=== PATIENT | male | born 1950 | race Caucasian/White ===

== ENCOUNTER → 2017-12-13 | Outpatient (CLI) | payer MEDICARE ==
[~2017-12-13] MED LIST: ALLOPURINOL300 MG PO; BUMETANIDE1 MG PO; CEFTIN250 MG PO; COATED ASPIRIN325 MG PO; COUMADIN5 MG PO; DIGITEK125 MC1 PO; FLOMAX0.4 MG PO; GLUCOPHAGE XL500 MG PO; IRON325 M1; LEVOTHYROXINE50 MCG PO; LIPITOR PO; LOVENOX100 MG/1 M; PROTONIX40 M1 PO; WARFARIN SODIUM5 MG PO; Z ANDROGEL; Z.0.ALDACTONE25 MG; Z.0.AMARYL2 MG PO; Z.0.AMIODARONE HCL20 PO; Z.0.COREG3.125 MG PO; Z.0.LISINOPRIL2.5 MG PO; Z.0.TORSEMIDE20 MG
--- NOTE | 2017-12-13 17:15 | Diagnostic Imaging Report ---
PROCEDURE:C-SPINE COMPLETE COMPARISON:None. INDICATIONS:NECK PAIN FINDINGS: The lateral view is visualized from the skull base to C7. Minimal anterolisthesis of C3 on C4 and C4 on C5. There are no fractures, lytic or blastic lesions. Mild disc space narrowing at C4-C5, C5-C6, and C6-C7 with associated mild foraminal narrowing. The C1/C2-odontoid interval is normal. The pre-vertebral soft tissues are normal. CONCLUSION: Minimal anterolisthesis of C3 on C4 and C4 on C5. Mild degenerative changes from C4-C7. Dictated by: Robson Arrington M.D. on 12/13/2017 at 17:17 Electronically approved by: Robson Arrington M.D. on 12/13/2017 at 17:17
== END ==
LOC: RAD 15:58
PROVIDERS: ATTEND Internal Medicine
DX: M54.2 Cervicalgia (principal)
CPT/HCPCS: 72050

== ENCOUNTER 2018-08-26 14:46 | Inpatient (IN) | payer MEDICARE, OTHER ==
[~2018-08-26] VITALS: Ht 167.6 cm; Wt 78.6 kg
--- OUTSIDE RECORDS SUMMARY | 2018-08-26 14:49 | XMS REPORT ---
Author [facility] Address Unknown Phone Unavailable Care Team Providers Care [employer] Dean Name Role Phone AMOS BHANDARI Unavailable Unavailable Leidy MANJARREZ Unavailable Unavailable Problems This patient has no known problems. Allergies, Adverse Reactions, Alerts This patient has no known allergies or adverse reactions. Medications This patient has no known medications. Results Test Description Test Time Test Comments Text Results Atomic Results Result Comments CERVICAL SPINE 4 OR 5 VIEWS [place] [address] Patient Name: BUBBA JAIN MR #: [id number] : 1950 Age/Sex: 67/M Req #: [id number] [facility], [place] Physician: Ordered by: AMOS BHANDARI MD Report #: [id number] Location: RAD Room/Bed: Procedure: [id number] DX/CERVICAL SPINE 4 OR 5 VIEWS Exam Date: Exam Time: REPORT STATUS: Signed PROCEDURE: C-SPINE COMPLETE COMPARISON: None. INDICATIONS: NECK PAIN FINDINGS: The lateral view is visualized from the skull base to C7. Minimal anterolisthesis of C3 on C4 and C4 on C5. There are no fractures, lytic or blastic lesions. Mild disc space narrowing at C4-C5, C5- C6, and C6-C7 with associated mild foraminal narrowing. The C1/C2-odontoid interval is normal. The pre-vertebral soft tissues are normal. CONCLUSION: Minimal anterolisthesis of C3 on C4 and C4 on C5. Mild degenerative changes from C4-C7. Dictated by: Robson Forrest M.D. on 12/13/2017 at 17:17 Electronically approved by: Robson Forrest M.D. on 12/13/2017 at 17:17 Dictated By: ROBSON FORREST MD 16 Transcribed By: JAY JAY on 12/13/171716 COPY TO: AMOS BHANDARI MD CHEST SINGLE (PORTABLE) [place] [address] Patient Name: BUBBA JAIN MR #: [id number] : 1950 Age/Sex: 66/M Req #: [id number] Adm Physician: Ordered by: JOSHUA MANJARREZ MD Report #: [id number] Location: ER Room/Bed: Procedure: [id number] DX/CHEST SINGLE (PORTABLE) Exam Date: 07/16/17 Exam Time: 1230 REPORT STATUS: Signed PROCEDURE: A single AP view of the chest. COMPARISON: [facility], DX, CHEST SINGLE (PORTABLE), 06/05/2016, 22:09. INDICATIONS: SHORTNESS OF BREATH, HISTORY OF 7 HEART ATTACKS, FINDINGS: Lines/tubes: Triple lead left chest wall cardiac device is again noted. Lungs: Mild pulmonary vascular congestion. Pleura: There is no pleural effusion or pneumothorax. Heart and mediastinum: The heart is enlarged. Bones: No acute bony abnormality. IMPRESSION: Cardiomegaly with mild pulmonary vascular congestion. Chintan Bertrand D.O. Dictated by: Chintan Bertrand D.O. on 07/16/2017 at 13:17 Electronically approved by: Chintan Bertrand D.O. on 07/16/2017 at 13:17 Dictated By: CHINTAN BERTRAND DO 131 Transcribed By: JAY JAY on 07/16/171316 COPY TO: JOSHUA MANJARREZ MD
[2018-08-26 15:30] LABS: BASOPHILS % 0.2 % (0.0-1.0); HEMATOCRIT 37.2 % (38.2-49.6); HEMOGLOBIN 12.1 g/dL (14.0-18.0); LYMPHOCYTES # (AUTO) 1.1 (1.0-3.2); LYMPHOCYTES % 9.1 % (18.0-39.1); MEAN CORPUSCULAR HEMOGLOBIN 29.2 pg (28-32); MEAN CORPUSCULAR HGB CONC 32.5 g/dL (31-35); MEAN CORPUSCULAR VOLUME 89.9 fL (81-99); MONOCYTES # (AUTO) 0.8 (0.2-0.8); MONOCYTES % 6.4 % (4.4-11.3); NEUTROPHILS # (AUTO) 9.8 (2.1-6.9); NEUTROPHILS % 82.4 % (38.7-80.0); PLATELET COUNT 308 x10e3/uL (140-360); RED BLOOD COUNT 4.14 x10e6/uL (4.3-5.7)
[2018-08-26 15:48] LABS: INR 2.45; PROTHROMBIN TIME 28.4 seconds (11.9-14.5)
[2018-08-26 15:49] LABS: PARTIAL THROMBOPLASTIN TIME 37.1 seconds (23.8-35.5)
[2018-08-26 15:54] LABS: CLARITY,URINE CLEAR (CLEAR); COLOR,URINE YELLOW (YELLOW); LEUKOCYTE ESTERASE ,URINE NEGATIVE (NEGATIVE); NITRITE,URINE NEGATIVE (NEGATIVE); PROTEIN,URINE DIPSTICK NEGATIVE (NEGATIVE)
[2018-08-26 15:55] LABS: BILIRUBIN,URINE NEGATIVE (NEGATIVE); KETONES,URINE NEGATIVE (NEGATIVE); URINE UROBILINOGEN 0.2 mg/dL (0.2 - 1)
[2018-08-26 16:02] LABS: BACTERIA,URINE RARE /HPF; EPITHELIAL CELLS,URINE RARE /LPF; RBC,URINE 0-5 /HPF (0-5); WBC,URINE (MAN) 0-5 /HPF (0-5)
[2018-08-26 16:03] LABS: CREATINE KINASE MB 3.4 ng/mL (0-5.0)
[2018-08-26 16:04] LABS: ALBUMIN 3.8 g/dL (3.5-5.0); ANION GAP 22.5 mmol/L (8-16); CALCIUM 10.5 mg/dL (8.4-10.2); CREATININE, SERUM 4.13 mg/dL (0.72-1.25); POTASSIUM 3.5 mmol/L (3.5-5.1)
--- NOTE | 2018-08-26 16:25 | Diagnostic Imaging Report ---
EXAMINATION: CHEST SINGLE (NOT PORTABLE) COMPARISON: Chest radiograph 07/16/2017. FINDINGS: TUBES and LINES: Left-sided AICD device with leads overlying the right sinus and right ventricle. LUNGS: Moderate inflation of the lungs. Mild patchy bibasilar opacities. No evidence of lobar consolidation or pulmonary edema. PLEURA: No pleural effusion or pneumothorax. HEART AND MEDIASTINUM: The cardiomediastinal silhouette is unchanged with mild cardiomegaly. Status post CABG. BONES AND SOFT TISSUES: Status post median sternotomy. No acute bony abnormality. UPPER ABDOMEN: No free air under the diaphragm. IMPRESSION: Left-sided AICD in unchanged position. No evidence of pulmonary edema. Signed by: Dr. Marques Monroe MD on 08/26/2018 4:21 PM
[2018-08-26] MEDS ORDERED: ASPIRIN 81 MG CHEW TAB PO ONE (21:00)
[2018-08-26] MEDS ORDERED: DEXTROSE 50% SYRINGE 50 ML IV PRN (21:00)
[2018-08-26] MEDS ORDERED: SODIUM CHLORIDE FLUSH 10 ML SYR INJ PRN (21:00)
[2018-08-26] MEDS ORDERED: ONDANSETRON HCL INJ 2 MG/ML VIAL IV PRN (21:00)
[2018-08-26] MEDS: INSULIN REGULAR, HUMAN 100 UNIT/1 ML 3ML VIAL SQ SCH (22:09)
[2018-08-27 00:58] LABS: CREATINE KINASE MB 2.4 ng/mL (0-5.0)
[2018-08-27] MEDS: ACETAMINOPHEN/CODEINE 300MG - 30MG TAB PO PRN ×2 (05:17→17:04)
--- NOTE | 2018-08-27 05:17 | NUR ---
PT REQUEST PAIN MEDICATION FOR BACK/SHOULDER PAIN. RATING 6/10. MEDICATED PER ORDER
[2018-08-27 06:17] LABS: BASOPHILS % 0.2 % (0.0-1.0); HEMOGLOBIN 11.7 g/dL (14.0-18.0); LYMPHOCYTES # (AUTO) 0.8 (1.0-3.2); MEAN CORPUSCULAR HEMOGLOBIN 29.6 pg (28-32); MEAN CORPUSCULAR HGB CONC 32.5 g/dL (31-35); MEAN CORPUSCULAR VOLUME 91.1 fL (81-99); MONOCYTES # (AUTO) 0.8 (0.2-0.8); MONOCYTES % 8.5 % (4.4-11.3); NEUTROPHILS # (AUTO) 7.2 (2.1-6.9); NEUTROPHILS % 80.2 % (38.7-80.0); PLATELET COUNT 267 x10e3/uL (140-360); RED BLOOD COUNT 3.95 x10e6/uL (4.3-5.7); RED CELL DISTRIBUTION WIDTH 16.3 % (11.7-14.4)
[2018-08-27] MEDS ORDERED: SODIUM CHLORIDE 0.9% 1000ML 1,000 ML IV ONE (06:30)
[2018-08-27 06:32] LABS: INR 2.04; PROTHROMBIN TIME 24.6 seconds (11.9-14.5)
[2018-08-27 06:53] LABS: ALBUMIN 3.4 g/dL (3.5-5.0); ANION GAP 22.3 mmol/L (8-16); CALCIUM 9.9 mg/dL (8.4-10.2); CREATININE, SERUM 3.72 mg/dL (0.72-1.25); POTASSIUM 3.3 mmol/L (3.5-5.1)
--- NOTE | 2018-08-27 07:00 | NUR ---
REPORT TO NAEEM SNYDER
--- NOTE | 2018-08-27 07:18 | History and Physical ---
REASON FOR ADMISSION: Iaiob-kx-mqrqytw kidney failure. HISTORY OF PRESENT ILLNESS: The patient is a gentleman with multiple comorbidities with chronic systolic heart failure, chronic AFib, chronic kidney disease stage 3, diabetes, and hypertension who presented being seen by his sales officer who felt like the patient appeared very ill, so sent him to the emergency room where he was noticed to have worsening of his rchmc-vy-dwsjwkd kidney disease, so he has been admitted for further evaluation but according to the patient he had a recent hospitalization at an outside hospital in [place] for CHF overload. I believe, the patient has just been over-diuresed because he was having significant amount of weight loss recently due to the diuretic use. Currently, he states he is not having any shortness of breath or chest pains. PAST MEDICAL HISTORY: Coronary artery disease; pacemaker; chronic AFib; chronic kidney disease, stage 3, sometimes 4; chronic systolic heart failure; diabetes; and hypothyroidism. MEDICATIONS: See OCT. ALLERGIES: PENICILLIN. SOCIAL HISTORY: Nonsmoker and nondrinker. Retired teacher. FAMILY HISTORY: Noncontributory. PHYSICAL EXAMINATION VITAL SIGNS: Temperature 98.6, blood pressure 130/70, pulse 78, and sats 98%. GENERAL: He is in no apparent distress, lying in bed. NECK: Supple. No lymphadenopathy. No JVD. CARDIOVASCULAR: Regular rate and rhythm due to being paced. LUNGS: Clear to auscultation bilaterally. ABDOMEN: Good bowel sounds. Soft and nontender. EXTREMITIES: No clubbing or cyanosis. NEUROLOGIC: Nonfocal. ASSESSMENT AND PLAN 1. Fqgyj-ng-dquvgwx kidney disease. The patient's baseline is usually in the upper 2 range with BUN of approximately 70, so the patient appears to be over-diuresed. We will give him some gentle hydration and monitor his lab values and we will also consult renal. 2. Chronic atrial fibrillation and coronary artery disease. Continue with current care per cardiology. 3. Diabetes. Continue with current care and monitoring. 4. Hypertension. Continue with current care and monitoring. 5. Chronic systolic heart failure. We will continue with his current medication regimen. Please see hospital chart for details. Job#: [id number] BRITTANIE
[2018-08-27] MEDS: INSULIN REGULAR, HUMAN 100 UNIT/1 ML 3ML VIAL SQ SCH ×4 (07:30→21:00)
[2018-08-27 09:00] LABS: CREATINE KINASE MB 2.1 ng/mL (0-5.0)
--- NOTE | 2018-08-27 12:10 | NUR ---
DR THEO CORNEJO COVERING FOR DR. DOUGHERTY AT BEDSIDE FOR H&P
--- NOTE | 2018-08-27 12:22 | Consultation ---
DATE OF CONSULTATION: August 27, 2018 REQUESTING PHYSICIAN: Dr. Butt. REASON FOR CONSULTATION: Acute kidney injury. Thank you for allowing us to participate in Mr. Man's care. This is a 67-year-old male with history of chronic kidney disease stage 3, mainly nephrosclerosis, usually runs creatinine around 2. He also has diabetic end-organ damage. Has recently been diuresing himself because of worsening heart failure type symptoms. He also had a recent hospitalization. He thinks he has lost quite a bit of weight while he was doing this, felt to be ill when seen by cardiology, so he was then sent to the ER. During evaluation found that while his urine was entirely bland negative for protein or blood on the dipstick with no casts, his creatinine was markedly elevated at 4.1. Chest x-ray was clear. K was 3.3. Hemoglobin was satisfactory at 11.7. His baseline creatinine as noted before runs around 2 to 2.4 about a year ago. PAST MEDICAL HISTORY: CKD stage 3, nephrosclerosis, type 2 diabetes, end-organ damage, history of CHF, AICD placement, history of fluid overload, multiple cysts on ultrasound although not clear that he met criteria for polycystic kidney disease. MEDICATIONS: Lasix has been stopped here. He has been on some IV fluids, allopurinol 300 a day, amiodarone 200 daily, aspirin 321 mg daily, digoxin 0.125 mg p.o. daily, Amaryl 2 mg daily, levothyroxine 50 mcg a day, metformin 500 b.i.d. which has been stopped, lisinopril 2.5 a day which has been stopped, warfarin. FAMILY HISTORY: No kidney problems. REVIEW OF SYSTEMS CONSTITUTIONAL: Was feeling poorly/weak, better now. RESPIRATORY: Denying dyspnea, cough, hemoptysis. CARDIAC: No angina or syncope. NEURO: Denying headache, seizures. His strength is returning. GI: Denying nausea, vomiting, diarrhea. Rest of review is negative. PHYSICAL EXAMINATION: GENERAL: Lying in bed. No distress. VITAL SIGNS: Temperature 98.4, pulse 82, blood pressure 109/80. HEENT: Grossly atraumatic. NECK: Neck veins are flat. CHEST: Clear. Bilateral breath sounds are equal. CARDIAC: Normal heart tone. Rhythm sounds regular at this time. Question S3. EXTREMITIES: No edema. SKIN: Dry. ABDOMEN: Benign. Liver not palpable. NEURO: Appears to be alert and appropriate. Speech is normal. Chest x-ray clear. UA is bland. K is 3.3. Serum CO2 of 23, creatinine 3.72 which is already improved, BUN down to 146 from 152 within a matter of a few hours. ASSESSMENT 1. Acute kidney injury, strongly suspect prerenal azotemia from the diuresis. Fluid overload is not an issue right now. 2. Mild hypokalemia. 3. History of chronic kidney disease stage 3 to 4. Baseline creatinine 2 to 2.4 mg%. PLAN: From a renal standpoint, I agree with limited IV fluids. Get renal ultrasound. Recheck chemistries. Will follow along. Job#: [id number]
[2018-08-27 13:31] VITALS: BP 132/79
[2018-08-27 13:52] VITALS: BP 132/79
--- NOTE | 2018-08-27 14:48 | Consultation ---
DATE OF CONSULTATION: REASON FOR CONSULTATION: Heart failure. HISTORY OF PRESENT ILLNESS: This is a 67-year-old man with a history of coronary artery disease status post coronary artery bypass graft surgery, chronic atrial fibrillation on anticoagulation, ischemic cardiomyopathy with chronic systolic congestive heart failure status post biventricular implantable cardioverter defibrillator, hypertension, hyperlipidemia, chronic kidney disease, diabetes mellitus, and hypothyroidism who presented to the emergency department via his outpatient appointment due to an ill appearance and volume overload. Evidently, the patient had been previously admitted to hospital in the [place] for what sounds like multiorgan failure. The patient had previously taken bumetanide 2 mg nightly; however, prior to admission in the [facility], the patient took 320 mg of Lasix. The patient reports that he received intravenous fluid hydration and left that hospital and presented to the outpatient clinic. He currently denies any chest pain or shortness of breath. Upon arrival here, the patient was noted to have a chest x-ray, which showed no evidence of pulmonary edema and his labs indicated kidney and liver dysfunction. PAST MEDICAL HISTORY: As stated above in the HPI. PAST SURGICAL HISTORY: As stated above in the HPI. PAST FAMILY HISTORY: No premature coronary artery disease or sudden cardiac . SOCIAL HISTORY: No illicit drug use, alcohol use, or tobacco use. ALLERGIES: PENICILLIN. MEDICATIONS: See medication reconciliation form. REVIEW OF SYSTEMS: A 12-point review of systems was conducted, is negative otherwise as above in the HPI. PHYSICAL EXAMINATION VITAL SIGNS: Temperature is 98.8, heart rate is 80, respirations are 18, blood pressure is 107/93, oxygen saturation 99% on room air. GENERAL: A well-appearing, elderly man, lying comfortably in bed, in no apparent distress. CARDIOVASCULAR: He is irregularly irregular with ectopy. LUNGS: Clear to auscultation. ABDOMEN: Soft, nontender. EXTREMITIES: No edema. VASCULAR: Diminished pulses. SKIN: Warm, dry, and intact. NEUROLOGIC: No focal deficits noted. Cranial nerves are grossly intact. LABORATORY DATA: All laboratory data reviewed. Creatinine 3.7, potassium 3.3, ALT 266, AST 64, bilirubin is 1.5. IMPRESSION 1. Chronic systolic congestive heart failure. 2. Ycwxy-to-oalevwf kidney disease. 3. Chronic atrial fibrillation. 4. Coronary artery disease status post coronary artery bypass graft surgery. 5. Diabetes mellitus. 6. Hypertension. RECOMMENDATIONS: Patient does not appear overtly volume overloaded. Chest x-ray was within normal limits. BMP elevated likely due to acute renal failure. Agree with general hydration and continue monitor his laboratory values closely. We will ensure to not overload the patient. Continue holding diuretics. Resume home cardiovascular medications including amiodarone, aspirin, carvedilol, and warfarin. Reasonable to hold digoxin and lisinopril at this point in time. Job#: [id number] SURESH
[2018-08-27 16:39] VITALS: BP 108/74
--- NOTE | 2018-08-27 19:00 | NUR ---
REPORT TAKEN FROM MORNING RN.WALKING ROUNDS DONE.LYEING QUIETLY IN THE BED.
[2018-08-27 20:55] VITALS: BP 124/76
[2018-08-27 21:00] VITALS: BP 124/76
[2018-08-28] VITALS (8 sets, daily range): BP systolic 100–121; BP diastolic 64–83
--- NOTE | 2018-08-28 02:27 | NUR ---
NO RESP.DISTRESS.AMBULATES.VOIDED.
[2018-08-28 06:13] LABS: BASOPHILS % 0.2 % (0.0-1.0); EOSINOPHILS % 0.1 % (0.0-6.0); HEMATOCRIT 36.6 % (38.2-49.6); HEMOGLOBIN 11.7 g/dL (14.0-18.0); LYMPHOCYTES # (AUTO) 0.9 (1.0-3.2); LYMPHOCYTES % 8.2 % (18.0-39.1); MEAN CORPUSCULAR HEMOGLOBIN 29.7 pg (28-32); MEAN CORPUSCULAR VOLUME 92.9 fL (81-99); MONOCYTES % 8.8 % (4.4-11.3); NEUTROPHILS % 79.7 % (38.7-80.0); PLATELET COUNT 260 x10e3/uL (140-360); RED BLOOD COUNT 3.94 x10e6/uL (4.3-5.7); RED CELL DISTRIBUTION WIDTH 16.7 % (11.7-14.4)
[2018-08-28 06:31] LABS: INR 1.63; PROTHROMBIN TIME 20.7 seconds (11.9-14.5)
[2018-08-28 06:46] LABS: ANION GAP 19.7 mmol/L (8-16); CALCIUM 9.9 mg/dL (8.4-10.2); CREATININE, SERUM 3.04 mg/dL (0.72-1.25); PHOSPHORUS 3.3 MG/DL (2.3-4.7); POTASSIUM 3.7 mmol/L (3.5-5.1)
--- NOTE | 2018-08-28 07:00 | NUR ---
REPORT GIVEN TO THE ONCOMING RN.WALKING ROUNDS DONE.STABLE CONDITION.
[2018-08-28] MEDS: INSULIN REGULAR, HUMAN 100 UNIT/1 ML 3ML VIAL SQ SCH ×4 (07:30→21:10)
[2018-08-28] MEDS ORDERED: WARFARIN SOD 5 MG TAB PO SCH (07:30)
--- NOTE | 2018-08-28 07:30 | NUR ---
Rcvd patient in report this am. Patient is awake in chair at this time. No s/s of distress noted
[2018-08-28] MEDS: LEVOTHYROXINE SODIUM 50 MCG TAB PO SCH (08:25)
[2018-08-28] MEDS: GLIMEPIRIDE 2 MG TAB PO SCH (08:47)
[2018-08-28] MEDS: CARVEDILOL 3.125 MG TAB PO SCH ×2 (08:47→17:48)
[2018-08-28] MEDS ORDERED: PANTOPRAZOLE SODIUM 40 MG SUSPDR.PKT PO SCH (09:00)
[2018-08-28] MEDS ORDERED: ALLOPURINOL 300 MG TAB PO SCH (09:00)
[2018-08-28] MEDS ORDERED: AMIODARONE HCL 200 MG TAB PO SCH (09:00)
[2018-08-28] MEDS ORDERED: POTASSIUM CHLO10 ME1 PO (09:18)
[2018-08-28] MEDS ORDERED: PANTOPRAZOLE SO40 MG PO (09:18)
[2018-08-28] MEDS ORDERED: METOLAZONE5 MG PO (09:18)
[2018-08-28] MEDS ORDERED: VITAMIN D31000 UNI1 PO (09:29)
[2018-08-28] MEDS ORDERED: COUMADIN5 MG PO (09:29)
[2018-08-28 10:10] LABS: BAND NEUTROPHILS % (MANUAL) 2 %; LYMPHOCYTES % (MANUAL) 8 % (19-48); MONOCYTES % (MANUAL) 8 % (3.4-9.0); NEUTROPHILS % (MANUAL) 82 % (40-74)
[2018-08-28 10:11] LABS: PLATELET ESTIMATE ADEQUATE; PLATELET MORPHOLOGY COMMENT NORMAL; RBC MORPHOLOGY COMMENT NORMAL
[2018-08-28] MEDS: SODIUM CHLORIDE 0.9% 1000ML 1,000 ML IV SCH (11:53)
--- NOTE | 2018-08-28 12:18 | Progress Note ---
DATE: CARDIOLOGY PROGRESS NOTE SUBJECTIVE: Patient is feeling well. Denies any chest pain or shortness of breath. OBJECTIVE VITAL SIGNS: Reviewed. Temperature 96.2, heart rate is 86, respirations 18, blood pressure is 131/83, oxygen saturation is 96% on room air. GENERAL: Well-appearing, in no apparent distress. CARDIOVASCULAR: Regular rate and rhythm. LUNGS: Clear to auscultation. ABDOMEN: Soft and nontender. LABORATORY DATA: Reviewed. Creatinine improved 3.04, potassium 3.7. Cardiac enzymes within normal limits. IMPRESSION 1. Chronic systolic congestive heart failure. 2. Eqpjm-dd-xlxoqhy kidney disease. 3. Dehydration. 4. Chronic atrial fibrillation. 5. Coronary artery disease, status post coronary artery bypass graft surgery. 6. Hypertension. 7. Hyperlipidemia. 8. Diabetes mellitus. RECOMMENDATIONS: Patient appears well compensated from his cardiac standpoint. NYHA class 1 symptoms. Continue gentle intravenous hydration for his acute kidney injury. We will have to titrate current cardiovascular medications. Continue to hold nephrotoxic agents. Diuretics also on hold. Job#: [id number] BENEDICTO
--- NOTE | 2018-08-28 14:42 | NUR ---
Patient c/o shortness of breath at this time. O2 sats noted at 96%. Patient placed on O2 at 2L NC for comfort. Will reassess.
[2018-08-28] MEDS: WARFARIN SOD 5 MG TAB PO SCH (17:48)
[2018-08-28] MEDS: ACETAMINOPHEN/CODEINE 300MG - 30MG TAB PO PRN (17:52)
--- NOTE | 2018-08-28 18:39 | Progress Note ---
DATE: August 28, 2018 NEPHROLOGY PROGRESS NOTE SUBJECTIVE: Today, the patient is feeling better. He denied any shortness of breath. He has been voiding freely without any difficulty. He maintains a good appetite. Denied any shortness of breath or chest pain. PHYSICAL EXAMINATION GENERAL: Alert, oriented, adult male, in no acute distress. VITAL SIGNS: Blood pressure 121/83, heart rate 86 per minute. LUNGS: Scattered fine rales bilaterally. HEART: Normal heart sounds. No additional sounds. ABDOMEN: Soft, nontender. No organomegaly. EXTREMITIES: No cyanosis, clubbing or edema. LABORATORY FINDINGS: Noted and reviewed. ASSESSMENT AND PLAN 1. Acute kidney injury, on chronic kidney disease, stage IV, multifactorial secondary to overdosing of diuretics by the patient himself (he has switched from his bumetanide to a very high dose of furosemide). There is a progressive improvement in his BUN and creatinine. At this point in time, he remains on low volume of intravenous fluids. 2. Volume status, compensated. 3. Monovalent electrolytes, in range. 4. Divalent electrolytes, in range. 5. Cardiac, further management per cardiology. 6. Disposition. I have discussed my evaluation, assessment, and plan of care with the patient and all details. All his questions were answered to his satisfaction until he had none. We will follow this patient with you. Job#: [id number] CHELO
--- NOTE | 2018-08-28 19:20 | NUR ---
REPORT TAKEN FROM MORNING RN .PT IS SITTING ON THE CHAIR.NO RESP.DISTRESS.NO PAIN VOICED.AAOX4.PHONE AND CALL LIGHT WITHIN REACH.INSTRUCTED TO CALL FOR ASSISTANCE NEEDED.
[2018-08-29] VITALS (7 sets, daily range): BP systolic 98–116; BP diastolic 54–82
[2018-08-29] MEDS: LEVOTHYROXINE SODIUM 50 MCG TAB PO SCH (05:31)
[2018-08-29 06:06] LABS: INR 1.51; PROTHROMBIN TIME 19.5 seconds (11.9-14.5)
[2018-08-29 06:10] LABS: ANION GAP 18.2 mmol/L (8-16); CALCIUM 10.2 mg/dL (8.4-10.2); CREATININE, SERUM 2.75 mg/dL (0.72-1.25); POTASSIUM 4.2 mmol/L (3.5-5.1)
--- NOTE | 2018-08-29 07:00 | NUR ---
REPORT GIVEN TO THE ONCOMING RN.WALKING ROUNDS DONE.STABLE CONDITION.
[2018-08-29] MEDS: INSULIN REGULAR, HUMAN 100 UNIT/1 ML 3ML VIAL SQ SCH ×4 (07:30→21:07)
[2018-08-29] MEDS: SODIUM CHLORIDE 0.9% 1000ML 1,000 ML IV SCH ×2 (07:45→12:16)
[2018-08-29] MEDS: PANTOPRAZOLE SOD 40 MG TABEC PO SCH (08:35)
[2018-08-29] MEDS: GLIMEPIRIDE 2 MG TAB PO SCH (09:00)
[2018-08-29] MEDS: CARVEDILOL 3.125 MG TAB PO SCH ×2 (09:00→21:04)
[2018-08-29] MEDS: ALLOPURINOL 300 MG TAB PO SCH (09:00)
--- NOTE | 2018-08-29 09:01 | NUR ---
VOICES NO C/O AT THIS TIME, PT REQUEST TO SPEAK WITH JYOTI, MADE AWARE THAT HE IS IN A MEETING AND IS AWARE , CALL LIGHT WITHIN REACH
--- NOTE | 2018-08-29 09:30 | NUR ---
ASSESSMENT: Spiritual distress Pt requested visit. Pt overwhelmed by illness and multiple hospitalizations. Pt states he has been experiencing "anxiety" related to his illness. Pt wants to return home where he has "freedom to rest and walk around" w/o being "tethered." Pt states he has only slept a few hours out of the last few days. Pt states he is single and has no family here, only several friends. Intervention: Provided empathic pastoral listening and hospitality. Facilitated illness review. Provided prayer. Outcome: Pt expressed appreciation for visit. JYOTI ANDRADE Crystal Report Developer Spiritual Care Department O: [phone] Pager: [phone] ([phone] number calling from)
--- NOTE | 2018-08-29 14:00 | Progress Note ---
DATE: August 29, 2018 CARDIOLOGY PROGRESS NOTE SUBJECTIVE: No major events overnight. Continues to feel better. OBJECTIVE VITAL SIGNS: Temperature 96.8, pulse 80, respiratory rate 20, blood pressure 110/82, satting 98% on nasal cannula. GENERAL: Elderly white man in no acute distress. CARDIOVASCULAR: Regular rate and rhythm. No murmurs, rubs or gallops. Palpable carotid pulses. Palpable radial pulses. LUNGS: Clear to auscultation bilaterally. ABDOMEN: Soft, nontender, nondistended. NEURO AND PSYCH: Alert and oriented to person, place and time. Normal affect. LABORATORY DATA: Reviewed. Creatinine continues to improve. TELEMETRY DATA: Reviewed, shows ventricularly paced rhythm with underlying atrial fibrillation. ASSESSMENT 1. Chronic systolic congestive heart failure. 2. Ghbro-gp-rgbcszt kidney disease. 3. Dehydration. 4. Chronic atrial fibrillation. 5. Coronary artery disease, status post coronary artery bypass graft surgery. 6. Hypertension. 7. Hyperlipidemia. 8. Diabetes. RECOMMENDATIONS: Patient appears well compensated from a cardiac standpoint. Does not have any heart failure symptoms. Continue IV hydration per nephrology given acute kidney injury. Hold diuretics. Thank you for this consult. We will continue to follow. Job#: [id number]
--- NOTE | 2018-08-29 14:46 | NUR ---
SITTING IN BS CHAIR, VOICES NO C/O AT THIS TIME, CALL LIGHT WITHIN REACH
--- NOTE | 2018-08-29 16:10 | NUR ---
Nutrition Screen Note RD Recommendation for Physician: -Continue cardiac/ ADA diet as ordered -Rec limiting dark leafy greens as pt is on Warfarin -Pt refused supplements or any nutrition intervention 08/29 Plan of Care: RD following, monitoring for tolerance and adequacy Nutrition reason for involvement: Nutrition Risk Trigger MST Primary Diagnose(s): 1. Chronic systolic congestive heart failure. 2. Ucxcy-ge-vnfjplp kidney disease. 3. Dehydration. PMH: Coronary artery disease; pacemaker; chronic AFib; chronic kidney disease, stage 3, sometimes 4; chronic systolic heart failure; diabetes; and hypothyroidism. Ht: 66in Wt: 171.19lb BMI: 27.6kg/m2 IBW: 142lb RD Assessment: (08/29) Chart reviewed. Labs and meds reviewed. 67yo M, who is admitted for CHF. Currently, pt is on IVF and Warfarin. Visited pt in the room. Pt reports having no appetite for 1.5 to 2 weeks due to illness. Offered nutrition supplements and diet modification to promote protein-energy intake, pt refused all. Pt states I just want to go home. Unknown weight loss hx. Pt denies any N/V/D/C. LBM 08/26, pt will notify RN if none today. Pt denies any chewing or swallowing difficulty. Will continue to monitor and follow. Current Diet: Cardiac/ ADA diet Malnutrition Evaluation (08/29) The patient does not meet criteria for a specified degree of malnutrition at this time. Will re-evaluate at follow-up as appropriate. Diet Education Needs Assessment: Diet education not indicated. Nutrition Care Level: low Signed: Torie Cadet, MS, RD, LD
[2018-08-29] MEDS: WARFARIN SOD 5 MG TAB PO SCH (17:29)
--- NOTE | 2018-08-29 18:30 | NUR ---
SITTING IN BS CHAIR, CALL LIGHT WITHIN REACH
--- NOTE | 2018-08-29 20:00 | NUR ---
pt received. pt assessed. no ss of distress noted. no co pain at time. tele in place. 02 nc noted. will cont to follow poc. call bedolla within reach.
[2018-08-29] MEDS: ACETAMINOPHEN/CODEINE 300MG - 30MG TAB PO PRN (21:07)
[2018-08-30] VITALS (7 sets, daily range): BP systolic 100–106; BP diastolic 68–80
--- NOTE | 2018-08-30 04:20 | NUR ---
no distress noted. call bedolla within reach.
[2018-08-30] MEDS: LEVOTHYROXINE SODIUM 50 MCG TAB PO SCH (05:20)
[2018-08-30 05:53] LABS: INR 1.94; PROTHROMBIN TIME 23.7 seconds (11.9-14.5)
[2018-08-30] MEDS ORDERED: LEVOTHYROXINE SODIUM 50 MCG TAB PO SCH (06:00)
[2018-08-30 06:34] LABS: ALBUMIN 3.5 g/dL (3.5-5.0); ALBUMIN/GLOBULIN RATIO 1.1 (0.8-2.0); ANION GAP 17.6 mmol/L (8-16); CALCIUM 10.2 mg/dL (8.4-10.2); CREATININE, SERUM 2.89 mg/dL (0.72-1.25); POTASSIUM 4.6 mmol/L (3.5-5.1)
[2018-08-30] MEDS: PANTOPRAZOLE SOD 40 MG TABEC PO SCH (08:30)
[2018-08-30] MEDS: CARVEDILOL 3.125 MG TAB PO SCH ×2 (09:00→20:58)
[2018-08-30] MEDS: INSULIN REGULAR, HUMAN 100 UNIT/1 ML 3ML VIAL SQ SCH ×4 (09:30→20:59)
[2018-08-30] MEDS: GLIMEPIRIDE 2 MG TAB PO SCH (10:00)
[2018-08-30] MEDS: ALLOPURINOL 300 MG TAB PO SCH (10:00)
[2018-08-30] MEDS: BISACODYL 5 MG TAB EC PO SCH ×2 (10:00→16:47)
[2018-08-30] MEDS: POLYETHYLENE GLYCOL 3350 17 GM PACK PO SCH (10:00)
--- NOTE | 2018-08-30 10:29 | NUR ---
VOICES NO NEEDS AT THIS TIME, PT REFUSED TO ORDER LUNCH UNTIL AFTER HE "HAS A BM", MEDICATED PER MD ORDER, PT EDUCATED TO CALL BEFORE GETTING OOB, CALL LIGHT WITHIN REACH
--- NOTE | 2018-08-30 14:56 | Progress Note ---
DATE: CARDIOLOGY PROGRESS NOTE SUBJECTIVE: Patient required laxatives overnight. Denies any chest pain or dyspnea. Feels overall improved. OBJECTIVE VITAL SIGNS: Temperature is 96, heart rate 58, respirations are 20, oxygen saturation 100% on 3 liters nasal cannula, blood pressure is 100/71. GENERAL: He is a well-appearing man, lying comfortably in bed, no apparent distress. CARDIOVASCULAR: He is bradycardic, regular rhythm. No murmurs. LUNGS: Clear to auscultation. ABDOMEN: Obese, soft, nontender. EXTREMITIES: Trace edema. LABORATORY DATA: Reviewed. Hemoglobin 11.7. Creatinine is stable at 2.89. TELEMETRY MONITORING: Revealed ventricular paced rhythm. IMPRESSION 1. Chronic systolic congestive heart failure. 2. Qwzhy-fb-iloyxmj kidney disease. 3. Dehydration. 4. Chronic atrial fibrillation. 5. Coronary artery disease, status post bypass graft surgery. RECOMMENDATIONS: Patient continues to be euvolemic and well compensated. He does not have any heart failure symptoms currently. Creatinine is essentially stable. Continue management per nephrology. From a cardiovascular standpoint, he may be discharged when ready by other teams. Job#: [id number] THEODORE
[2018-08-30] MEDS: WARFARIN SOD 5 MG TAB PO SCH (16:46)
[2018-08-30] MEDS ORDERED: BISACODYL 5 MG TAB EC PO PRN (18:00)
--- NOTE | 2018-08-30 18:02 | NUR ---
PT SITTING IN BS CHAIR, VISITING WITH FAMILY, REPORTS BM, STILL REFUSING TO EAT ANYTHING "UNTIL TOMORROW", EDUCATED THAT SNACKS ARE AVAILABLE IF WANT LATER, CALL LIGHT WITHIN REACH
--- NOTE | 2018-08-30 19:02 | NUR ---
received patient in recliner, aaox4, stable condition. no needs voiced at this time. will continue to monitor the patient closely. call light within easy reach.
--- NOTE | 2018-08-30 19:13 | Diagnostic Imaging Report ---
EXAM: Renal Ultrasound COMPARISON: Renal ultrasound 11/23/15. TECHNIQUE: Transverse and longitudinal images of the kidneys and bladder were obtained. FINDINGS: Right Kidney: Length: The right kidney measures 10.7 x 4.5 x 5.5 cm Appearance: Normal echogenicity. Collecting system: No hydronephrosis Stones: None Cyst/Mass: Multiple predominately simple appearing right sided renal cysts, measuring up to 2.6 cm in the inferior pole. Left Kidney: Length: The left kidney measures 10.4 x 5.1 x 3.8 cm. Appearance: Normal echogenicity. Collecting system: No hydronephrosis Stones: There is a 4 mm and a 3 mm stone in the lateral aspect of the left kidney. Cyst/Mass: Multiple simple appearing left renal cysts, largest measuring up to 9 cm in the mid pole. Bladder: The bladder is unremarkable in appearance. No ureteral jets are seen. IMPRESSION: No evidence of hydronephrosis. 3 mm and 4 mm non-obstructing left renal stones. Bilateral predominately simple appearing renal cysts. Signed by: Dr. Marques Monroe MD on 08/30/2018 7:10 PM
[2018-08-30] MEDS: SODIUM CHLORIDE 0.9% 1000ML 1,000 ML IV SCH (23:45)
[2018-08-31] VITALS: BP 132/78
[2018-08-31] MEDS: ACETAMINOPHEN/CODEINE 300MG - 30MG TAB PO PRN (00:01)
[2018-08-31 00:32] VITALS: BP 132/78
[2018-08-31 04:00] VITALS: BP 114/67
[2018-08-31 05:57] LABS: BASOPHILS % 0.3 % (0.0-1.0); EOSINOPHILS % 0.1 % (0.0-6.0); HEMATOCRIT 40.6 % (38.2-49.6); HEMOGLOBIN 12.8 g/dL (14.0-18.0); LYMPHOCYTES # (AUTO) 1.5 (1.0-3.2); LYMPHOCYTES % 9.7 % (18.0-39.1); MEAN CORPUSCULAR HGB CONC 31.5 g/dL (31-35); MEAN CORPUSCULAR VOLUME 95.1 fL (81-99); MONOCYTES % 6.7 % (4.4-11.3); NEUTROPHILS % 80.3 % (38.7-80.0); PLATELET COUNT 256 x10e3/uL (140-360); RED BLOOD COUNT 4.27 x10e6/uL (4.3-5.7); RED CELL DISTRIBUTION WIDTH 18.4 % (11.7-14.4)
[2018-08-31] MEDS: LEVOTHYROXINE SODIUM 50 MCG TAB PO SCH (06:10)
[2018-08-31 06:27] LABS: ANION GAP 21.6 mmol/L (8-16); CALCIUM 10.3 mg/dL (8.4-10.2); CREATININE, SERUM 2.95 mg/dL (0.72-1.25); POTASSIUM 4.6 mmol/L (3.5-5.1)
--- NOTE | 2018-08-31 07:22 | NUR ---
HANDOFF REPORT REC'D DURING WALKING ROUNDS. NAD OBSERVED OR REPORTED. WAITING CUSTOMER FACILITIES SUPERVISOR BACK FROM RENAL CONSULT FOR D/C.
[2018-08-31] MEDS: INSULIN REGULAR, HUMAN 100 UNIT/1 ML 3ML VIAL SQ SCH ×2 (07:30→11:30)
[2018-08-31 08:14] VITALS: BP 110/74
[2018-08-31] MEDS: ALLOPURINOL 300 MG TAB PO SCH (08:25)
[2018-08-31] MEDS: PANTOPRAZOLE SOD 40 MG TABEC PO SCH (08:25)
[2018-08-31] MEDS: CARVEDILOL 3.125 MG TAB PO SCH (08:25)
[2018-08-31] MEDS: GLIMEPIRIDE 2 MG TAB PO SCH (08:25)
[2018-08-31] MEDS: POLYETHYLENE GLYCOL 3350 17 GM PACK PO SCH (08:25)
[2018-08-31 09:02] VITALS: BP 110/74
--- NOTE | 2018-08-31 10:20 | NUR ---
Pt unavailable at this time. Pharmacist at bedside. I will follow up as able. JYOTI ANDRADE Boxing Trainer Spiritual Care Department O: [phone] Pager: [phone] ([phone] number calling from)
--- NOTE | 2018-08-31 10:24 | NUR ---
2nd call placed to Dr. Borja regarding discharge order.
--- NOTE | 2018-08-31 10:32 | NUR ---
h rounding at this time for education needs on medications.
--- NOTE | 2018-08-31 11:06 | NUR ---
SOCIAL WORK INITIAL ASSESSMENT Car Pusher to bedside to discuss plan of care with patient/family. CM/SW role and care transitions discussed. Anticipated discharge plan discussed along with duration of care. CM/SW discussed patients right to make decisions in care. CM/SW work hours given. Patient lives: HOUSE BY SELF Admit/Transfer: VIA HOME POA/Emergency contact: SISTER CHEYENNE MAHER [phone] Current/Previous Home Health: NONE PCP/Follow-up Care: ELISABET Current/Previous DME: NONE Other Services: NONE Employment Status: RETIRED Areas of Concerns: NONE Referral Needs: NONE Education Needs: NONE IMM/GOODWIN given and signed (if applicable): IMM Goal for discharge: RETURN HOME INDEPENDENTLY CM/SW left business card at the bedside with contact information. Name and number was also written on the patients whiteboard. Patient verbalized understanding of discussion. CM will follow-up with ongoing discharge and transition of care needs.
--- NOTE | 2018-08-31 11:18 | NUR ---
Dr. Debbie Goyal rounding; okay to discharge per cardiology. Per Dr. Goyal, the pt will need to follow up with Dr. Arrieta in 1 week after discharge.
[2018-08-31 12:42] VITALS: BP 119/73
--- NOTE | 2018-08-31 13:16 | NUR ---
4TH ATTEMPT MADE TO CONTACT RENAL CONSULT; NO ANSWERING SERVICE OR VOICEMAIL AVAILABLE AT THIS TIME. DR. BHANDARI MADE AWARE; OK TO DC.
--- NOTE | 2018-08-31 13:39 | NUR ---
Discharge instructions given to the patient, patient verbalizes understanding. IV removed with tip intact, dressing applied. All personal belongings gathered and packed for the patient.
--- NOTE | 2018-08-31 13:50 | NUR ---
Dr. Jonh norton. Instructed patient to follow up with his office in 2 weeks, patient verbalized understanding.
--- NOTE | 2018-08-31 14:00 | NUR ---
Pt escorted to personal vehicle with all belongings via wheelchair in stable condition.
== END 2018-08-31 14:00 | disposition home or self-care (01) | DRG 683 ==
LOC: ER 14:46 → ERHOLD 22:19 → MED/SURG 08-27 13:21
PROVIDERS: ADMIT Internal Medicine; ATTEND Internal Medicine
DX: N17.9 Acute kidney failure, unspecified (principal); I13.0 Hypertensive heart and chronic kidney disease with heart failure and stage 1 through stage 4 chronic kidney disease, or unspecified chronic kidney disease; I50.22 Chronic systolic (congestive) heart failure; I48.2 Chronic atrial fibrillation; E11.22 Type 2 diabetes mellitus with diabetic chronic kidney disease; I25.10 Atherosclerotic heart disease of native coronary artery without angina pectoris; E03.9 Hypothyroidism, unspecified; Z88.0 Allergy status to penicillin; E87.6 Hypokalemia; J44.9 Chronic obstructive pulmonary disease, unspecified; I25.2 Old myocardial infarction; N40.0 Benign prostatic hyperplasia without lower urinary tract symptoms; Z95.810 Presence of automatic (implantable) cardiac defibrillator; Z95.1 Presence of aortocoronary bypass graft; Z87.891 Personal history of nicotine dependence; Z82.49 Family history of ischemic heart disease and other diseases of the circulatory system; Z83.3 Family history of diabetes mellitus; E86.0 Dehydration; E78.5 Hyperlipidemia, unspecified; N18.4 Chronic kidney disease, stage 4 (severe); T50.2X5A Adverse effect of carbonic-anhydrase inhibitors, benzothiadiazides and other diuretics, initial encounter
CPT/HCPCS: 36415; 71045; 76770; 80048; 80053; 81001; 81015; 82550; 82553; 82948; 83735; 83880; 84100; 84484; 84550; 85025; 85610; 85730; 93005; 96372; 99284; J7030

== ENCOUNTER 2018-09-05 06:18 | Inpatient (IN) | payer MEDICARE, OTHER ==
[~2018-09-05] VITALS: Ht 167.6 cm; Wt 76.3 kg
[~2018-09-05 06:18] MED LIST changes: +METOLAZONE5 MG PO; +PANTOPRAZOLE SO40 MG PO; +POTASSIUM CHLO10 ME1 PO; +VITAMIN D31000 UNI1 PO
[2018-09-05 07:43] LABS: BASOPHILS % 0.1 % (0.0-1.0); EOSINOPHILS % 0.1 % (0.0-6.0); HEMATOCRIT 42.5 % (38.2-49.6); HEMOGLOBIN 13.7 g/dL (14.0-18.0); LYMPHOCYTES # (AUTO) 0.8 (1.0-3.2); LYMPHOCYTES % 5.2 % (18.0-39.1); MEAN CORPUSCULAR HGB CONC 32.2 g/dL (31-35); MONOCYTES # (AUTO) 1.3 (0.2-0.8); MONOCYTES % 8.1 % (4.4-11.3); NEUTROPHILS # (AUTO) 13.4 (2.1-6.9); NEUTROPHILS % 85.2 % (38.7-80.0); PLATELET COUNT 206 x10e3/uL (140-360); RED BLOOD COUNT 4.57 x10e6/uL (4.3-5.7); RED CELL DISTRIBUTION WIDTH 18.7 % (11.7-14.4)
[2018-09-05 07:49] LABS: BILIRUBIN,URINE NEGATIVE (NEGATIVE); CLARITY,URINE CLEAR (CLEAR); COLOR,URINE YELLOW (YELLOW); KETONES,URINE NEGATIVE (NEGATIVE); LEUKOCYTE ESTERASE ,URINE NEGATIVE (NEGATIVE); NITRITE,URINE NEGATIVE (NEGATIVE); PROTEIN,URINE DIPSTICK NEGATIVE (NEGATIVE); URINE UROBILINOGEN 0.2 mg/dL (0.2 - 1)
[2018-09-05 08:00] LABS: PROTHROMBIN TIME 55.9 seconds (11.9-14.5)
[2018-09-05 08:01] LABS: PARTIAL THROMBOPLASTIN TIME 39.9 seconds (23.8-35.5)
[2018-09-05 08:03] LABS: INR 5.83
[2018-09-05 08:10] LABS: CREATINE KINASE MB 3.1 ng/mL (0-5.0); WBC,URINE (MAN) 0-5 /HPF (0-5)
[2018-09-05 08:11] LABS: BACTERIA,URINE MODERATE /HPF; EPITHELIAL CELLS,URINE MODERATE /LPF; HYALINE CASTS 0-1 (0-1); RBC,URINE 0-5 /HPF (0-5)
[2018-09-05 08:17] LABS: ALBUMIN/GLOBULIN RATIO 1.3 (0.8-2.0); ANION GAP 19.4 mmol/L (8-16); CALCIUM 10.2 mg/dL (8.4-10.2); CREATININE, SERUM 4.01 mg/dL (0.72-1.25); POTASSIUM 4.4 mmol/L (3.5-5.1)
--- NOTE | 2018-09-05 08:48 | Diagnostic Imaging Report ---
EXAM: CHEST 2 VIEWS, PA and lateral DATE: 09/05/2018 6:38 AM Time stamp on exam: 7:40 AM INDICATION: Shortness of breath COMPARISON: 08/26/2018 FINDINGS: LINES/TUBES: Left-sided triple-lumen cardiac device again noted. Multiple sternotomy wires and mediastinal clips are present. LUNGS: Mild pulmonary vascular congestion. PLEURA: No effusions or pneumothorax. HEART AND MEDIASTINUM: Heart is mildly enlarged. BONES AND SOFT TISSUES: Degenerative changes of the spine. IMPRESSION: Mild pulmonary vascular congestion. Signed by: Dr. Cassius Bertrand DO on 09/05/2018 8:45 AM
[2018-09-05] MEDS ORDERED: CARVEDILOL 3.125 MG TAB PO ONE (09:00)
[2018-09-05] MEDS ORDERED: DEXTROSE 50% SYRINGE 50 ML IV PRN (09:15)
[2018-09-05] MEDS ORDERED: BUMETANIDE INJ 0.25MG/ML 4ML VIAL IV ONE (12:15)
[2018-09-05] MEDS: INSULIN LISPRO 100 UNIT/1 ML 3ML VIAL SQ SCH ×3 (12:27→22:11)
[2018-09-05] MEDS ORDERED: SODIUM CHLORIDE 0.9% 250ML 250 ML ONE (12:38)
--- NOTE | 2018-09-05 13:13 | Consultation ---
DATE OF CONSULTATION: September 05, 2018 CARDIOLOGY CONSULTATION REQUESTING PHYSICIAN: Dr. Lee Butt. REASON FOR CONSULTATION: Ddmbt-dd-kmicwcb systolic heart failure. HISTORY OF PRESENT ILLNESS: This is a 67-year-old man with coronary artery disease status post myocardial infarction and 3-vessel CABG, chronic systolic and diastolic heart failure, atrial fibrillation, diabetes mellitus, hyperlipidemia, hypertension and chronic kidney disease, who presents with complaints of shortness of breath. He indicates that he has not been taking his diuretics at home due to concern regarding his renal function. He subsequently developed shortness of breath a couple of days prior to admission. He endorses symptoms consistent with orthopnea and paroxysmal nocturnal dyspnea. In addition, he noticed increasing lower extremity swelling as well as chest tightness on Wednesday. He subsequently presented to ER for further evaluation. Of note, he indicates he endorses palpitations and has been having poor appetite and diarrhea. REVIEW OF SYSTEMS: Negative except as per HPI. PAST MEDICAL HISTORY 1. Coronary artery disease status post myocardial infarction and 3-vessel CABG. 2. Chronic systolic and diastolic heart failure. 3. Atrial fibrillation. 4. Hypertension. 5. Hyperlipidemia. 6. Diabetes mellitus. 7. Chronic kidney disease. PAST SURGICAL HISTORY 1. CABG. 2. Bi-V ICD. ALLERGIES: PLEASE SEE EMR. MEDICATIONS: Please see medication list. SOCIAL HISTORY: He quit smoking in 2002, previously smoked 2 packs a day for 23 years. No alcohol or illicit drugs. FAMILY HISTORY: Noncontributory. PHYSICAL EXAMINATION VITAL SIGNS: Temperature 97.8 degrees, pulse 107, respiratory rate 18, blood pressure 93/82, oxygen saturation 98%. GENERAL: Awake, alert, in no acute distress. HEENT: Normocephalic, atraumatic. Pupils equal, no scleral icterus. NECK: Supple. No thyromegaly or cervical lymphadenopathy, no carotid bruits. LUNGS: Clear to auscultation bilaterally. No wheezes or crackles. CARDIOVASCULAR: Tachycardic, irregularly irregular. ABDOMEN: Soft, nontender. EXTREMITIES: 2+ pitting edema bilaterally. NEURO: Nonfocal exam. LABS: WBC 15.7, hemoglobin 13.7, hematocrit 42.5, platelets 206. Sodium 133, potassium 4.4, chloride 97, CO2 21, BUN 135, creatinine 4.01. Lactic acid 22.4. BNP 1029. AST 79, ALT 225. INR 1.83. CHEST X-RAY: Mild pulmonary vascular congestion. ELECTROCARDIOGRAM: Atrial fibrillation rapid ventricular rate with demand ventricular pacing, nonspecific intraventricular block, collateral infarct age undetermined. IMPRESSION 1. Afomc-xg-lyiygrd systolic heart failure. 2. Acute kidney injury on chronic kidney disease. 3. Supratherapeutic international normalized ratio. 4. Elevated liver function tests. 5. Hypotension. 6. Lactic acidosis. 7. Coronary artery disease status post 3-vessel coronary artery bypass graft. 8. Chronic atrial fibrillation. 9. Hypertension. 10. Hyperlipidemia. 11. Diabetes mellitus. 12. Hypothyroidism. RECOMMENDATIONS: We will start patient on diuretics. Patient's elevated LFTs and acute kidney injury may be secondary to congestive hepatopathy and volume overload. Watch renal function closely. We will hold patient's home carvedilol due to hypotension. Hold warfarin due to supratherapeutic INR. Watch hemoglobin and hematocrit closely. Continue atorvastatin. Thank you for this consult. We will continue to follow. Job#: [id number] MARTIN
--- NOTE | 2018-09-05 13:50 | NUR ---
FFP ONGOING; PT UP TO CHAIR AND WAFFLE TOPPER APPLIED WITH 42 PUMPS; BED RE-MADE; PT BACK IN BED AND ON MONITOR; SAYS THE TOPPER REALLY HELPS WITH THE COMFORT IN BED.
--- NOTE | 2018-09-05 14:45 | NUR ---
REPORT TO RECEIVING BRICE HARTLEY.
[2018-09-05 16:06] LABS: CREATINE KINASE MB 2.8 ng/mL (0-5.0)
[2018-09-05 16:07] VITALS: BP 95/71
[2018-09-05 16:18] VITALS: BP 95/71
[2018-09-05] MEDS ORDERED: LORAZEPAM 1 MG TAB PO PRN (16:30)
--- NOTE | 2018-09-05 17:13 | NUR ---
DR. ROXANA GRANGER
[2018-09-05] MEDS ORDERED: SODIUM CHLORIDE 0.9% 1000ML 1,000 ML IV SCH (17:30)
[2018-09-05] MEDS: CARVEDILOL 3.125 MG TAB PO SCH (18:03)
--- NOTE | 2018-09-05 18:05 | NUR ---
Per Dr. Borja, insert 14FR Castillo.
--- NOTE | 2018-09-05 18:13 | Consultation ---
DATE OF CONSULTATION: September 05, 2018 RENAL CONSULTATION HISTORY OF PRESENT ILLNESS: A 67-year-old gentleman who was recently discharged from the hospital. Returns with watery diarrhea. States he was taking Bumex but his weight did not change. He was in communication with Dr. Butt. He then presented to the hospital where he was found to have significant worsening of kidney function, BUN 135, creatinine 4.01. He is currently sitting up, complaining of severe lower backache but appears to be comfortable at this point in time. He denies any radiation of that pain. Denies shortness of breath with chest pain. I have seen him during this last visit. His discharge creatinine was 2.95. He was asked to follow up in the office. Further test shows white count 15.7, hemoglobin 13.7. His calcium remains 10.2. LFTs elevated. BNP is 1929. He denies any shortness of breath, nausea, vomiting. His urine specific gravity is 1.020, dipstick negative, urine microscopy benign. He denies any fever and chills as well. Has had blood cultures done. States he has been voiding urine at home. ALLERGIES: TO PENICILLIN. CURRENT MEDICATIONS: Apparently received 1 dose of Bumex. He is on carvedilol 3.125 p.o. b.i.d. He is on Humalog per protocol. SOCIAL HISTORY: Does not smoke or drink. FAMILY HISTORY: Significant for hypertension. PAST MEDICAL HISTORY: Significant for type 2 diabetes. Chronic kidney disease. Diabetic nephropathy. History of hypercalcemia. History of congestive heart failure. History of AICD pacemaker placement. Coronary artery bypass surgery. Laboratory tests as above. Sodium 133. Potassium 4.4. Bicarbonate 21. Hemoglobin 13.7. INR is 5.83 as patient has been on Coumadin. PHYSICAL EXAMINATION: GENERAL: Awake, alert, sitting up, in no apparent distress. VITALS: Blood pressure 95/71, pulse rate 117, afebrile, oxygen saturation 100% on room air. HEAD AND NECK: Cornea clear. Oral mucosa dry. Neck veins flat. LUNGS: Clear. No rales. HEART: S1/S2 audible. There is 2/6 to 3/6 ejection systolic murmur heard over left sternal border. ABDOMEN: Distended, soft, nontender. LOWER EXTREMITY EXAMINATION: 2 to 3+ edema extending up to the knees. IMPRESSION: 1. Elevated international normalized ratio. 2. Nsbsv-lg-ypnwajq kidney failure. 3. Hyponatremia. 4. Increased total body water edema but appears clinically dry. Has had watery diarrhea for several days, he claims. 5. Underlying hypercalcemia, multifactorial. Plan on obtaining intact PTH. Will start gentle IV hydration in the form of normal saline. Insert a Castillo catheter. Knee-high JARAD hoses. I have requested the nurse to place Lidoderm patches over the back. Pain medication has been ordered by Dr. Butt. I will monitor patient's kidney function, urine output with you. Further recommendations to follow. Job#: [id number] EV
[2018-09-05] MEDS ORDERED: SODIUM CHLORIDE 0.9% 1000ML 1,000 ML IV ONE (19:45)
--- NOTE | 2018-09-06 00:20 | NUR ---
received pt from ER to room 211, pt AAOx3 but stated "I need to get up and go resign right now" informed pt it was midnight, pt stated "Youll be surprised by what president esther can get accomplished", pt with intermittent moaning and crying when asked why pt stated "I dont know", resp even and unlabored, tele box [id number] with pt running Afib with intermittent ventricular pacing and ST, pt has khan draining clear dark yellow urine, pt able to ambulate with assist but becomes unsteady, skin intact, bed in lowest and locked position, bed alarm on and call light in reach
[2018-09-06 00:39] LABS: CREATINE KINASE MB 2.3 ng/mL (0-5.0)
[2018-09-06 00:59] VITALS: BP 98/74
--- NOTE | 2018-09-06 04:47 | NUR ---
pt refusing labs notified
--- NOTE | 2018-09-06 05:00 | NUR ---
pt refusing all care, unable to obtain vital signs, pt up and ambulating with very unsteady gait, multiple attempts to assist pt states "I will not get into bed unless someone of higher authority comes and speaks to me", warehouse associate driver notified
--- NOTE | 2018-09-06 05:18 | NUR ---
pt sitting in chair next to bed, does not want to be in bed, call light placed in reach, reattempt to obtain labs and vital signs, pt continues to refuse, instructed pt to call before attempting to ambulate due to fall and bleeding risk and for safety, pt stated "ok thank you"
--- NOTE | 2018-09-06 05:59 | NUR ---
pt ambulating without assist continuing to refuse assistance from staff requesting to "I want to speak to the founder president and ceo and the secretary receptionist so we can start fixing this government"
[2018-09-06 07:04] LABS: BASOPHILS % 0.1 % (0.0-1.0); HEMOGLOBIN 12.4 g/dL (14.0-18.0); LYMPHOCYTES # (AUTO) 0.7 (1.0-3.2); LYMPHOCYTES % 5.2 % (18.0-39.1); MEAN CORPUSCULAR HEMOGLOBIN 29.7 pg (28-32); MEAN CORPUSCULAR HGB CONC 31.8 g/dL (31-35); MEAN CORPUSCULAR VOLUME 93.3 fL (81-99); MONOCYTES # (AUTO) 1.2 (0.2-0.8); MONOCYTES % 9.1 % (4.4-11.3); NEUTROPHILS % 84.4 % (38.7-80.0); PLATELET COUNT 155 x10e3/uL (140-360); RED BLOOD COUNT 4.18 x10e6/uL (4.3-5.7)
--- NOTE | 2018-09-06 07:10 | NUR ---
RCD PT AT BED PT IS ALERT AND ORIENTED PT RESTING ON BED IV PATENT BED LOW AND LOCKED CALL LIGHT IN REACH
[2018-09-06 07:18] LABS: INR 3.99; PARTIAL THROMBOPLASTIN TIME 35.8 seconds (23.8-35.5)
[2018-09-06 07:21] LABS: PROTHROMBIN TIME 41.6 seconds (11.9-14.5)
[2018-09-06 07:25] LABS: ALANINE AMINOTRANSFERASE 253 IU/L (0-55); ALBUMIN 3.3 g/dL (3.5-5.0); ALBUMIN/GLOBULIN RATIO 1.3 (0.8-2.0); ALKALINE PHOSPHATASE 161 IU/L (40-150); ANION GAP 22.4 mmol/L (8-16); CARBON DIOXIDE 17 mmol/L (22-29); CHLORIDE 104 mmol/L (98-107); CREATININE, SERUM 3.53 mg/dL (0.72-1.25); GLUCOSE 108 mg/dL (74-118); POTASSIUM 4.4 mmol/L (3.5-5.1); SODIUM 139 mmol/L (136-145)
[2018-09-06] MEDS: INSULIN LISPRO 100 UNIT/1 ML 3ML VIAL SQ SCH ×4 (07:30→21:00)
[2018-09-06 07:31] LABS: CREATINE KINASE MB 2.6 ng/mL (0-5.0)
--- NOTE | 2018-09-06 07:44 | Consultation ---
DATE OF CONSULTATION: September 06, 2018 This is a 67 year old who presented to the hospital because of pain in the left lower quadrant area along with some decrease in appetite. He started with some explosive diarrhea. He also noticed some bright red blood per rectum. He denies any nausea or vomiting along with this problem. His workup so far revealed that he has leukocytosis with WBC of 15.7 and ikdwd-st-sdfvtrx renal failure, and also supratherapeutic INR. His other medical problems are significant for history of diabetes, CHF, chronic kidney disease, hypertension, status post CABG, atrial fibrillation, history of BIVI ICD. ALLERGIES: PENICILLIN. MEDICATIONS: At this point, including Coreg, Humalog, Protonix. SOCIAL HISTORY: No alcohol use. FAMILY HISTORY: Noncontributory. REVIEW OF SYSTEMS: Denies any chest pain or shortness of breath at this point. Denies any dysphagia or odynophagia. Denies any dysuria or hematuria, or any kind of syncopal episode. Diarrhea appears to be resolved. PHYSICAL EXAMINATION GENERAL: Patient is awake, alert and appears to be stable. No acute distress at this point. VITAL SIGNS: Afebrile currently. HEENT: Normocephalic. Sclerae is anicteric. NECK: Supple. HEART: Regular. ABDOMEN: Soft. There is mild left lower quadrant tenderness. There is no rebound or mass. EXTREMITIES: No clubbing. LAB VALUES: PT was 55.9 on admission. INR 5.83. The patient received FFP. BUN of 135, creatinine of 4.01. Liver enzymes are elevated with AST of 79, ALT of 225. Bilirubin of 2.6. BNP was 1929. IMPRESSION 1. Abdominal pain associated with diarrhea: Diarrhea seems to be resolved. 2. Leukocytosis. 3. Elevated liver values. 4. Elevation of liver function tests. RECOMMENDATIONS: Will obtain CT of the abdomen and pelvis at this point. Follow labs. Reverse anticoagulation. IV fluid hydration. Job#: [id number] RI cc:AMOS BHANDARI MD
[2018-09-06 07:58] LABS: BUN/CREATININE RATIO 37 (6-25)
[2018-09-06 08:00] VITALS: BP 98/74
[2018-09-06 08:01] LABS: BLOOD UREA NITROGEN 129 mg/dL (7-26)
[2018-09-06 08:23] VITALS: BP 110/70
[2018-09-06] MEDS: PANTOPRAZOLE SOD 40 MG TABEC PO SCH (08:40)
[2018-09-06] MEDS: LIDOCAINE 5% PATCH TP SCH ×2 (08:40→09:00)
[2018-09-06] MEDS: CARVEDILOL 3.125 MG TAB PO SCH ×2 (09:00→17:00)
--- NOTE | 2018-09-06 12:39 | Progress Note ---
DATE: September 06, 2018 CARDIOLOGY PROGRESS NOTE SUBJECTIVE: Patient denies chest pain or shortness of breath. OBJECTIVE VITAL SIGNS: Temperature 96.1 degrees, pulse 67, respiratory rate 18, blood pressure 110/70, oxygen saturation 99% on room air. GENERAL: Elderly man in no acute distress, awake and alert. LUNGS: Clear to auscultation bilaterally. No wheezes or crackles. CARDIOVASCULAR: Normal rate, irregularly irregular. ABDOMEN: Soft, nontender. EXTREMITIES: 2+ pitting edema bilaterally. CARDIAC MEDICATIONS: Carvedilol 3.125 mg p.o. b.i.d. LABS: WBC 12.98, hemoglobin 12.4, hematocrit 39, platelets 155. Sodium 139, potassium 4.4, chloride 17, CO2 129, BUN 12, creatinine 3.53. Troponin 0.118. AST 142, ALT 253. INR 3.99. IMPRESSION 1. Nrxxe-zw-bmkdxqo systolic heart failure. 2. Acute kidney injury on chronic kidney disease. 3. Supratherapeutic international normalized ratio. 4. Elevated liver function tests. 5. Hypotension. 6. Lactic acidosis. 7. Coronary artery disease status post 3-vessel coronary artery bypass graft. 8. Chronic atrial fibrillation. 9. Hypertension. 10. Hyperlipidemia. 11. Diabetes mellitus. 12. Hypothyroidism. RECOMMENDATIONS: Diuretics were discontinued by Nephrology, and patient was started on IV fluids. Monitor closely. Patient remains volume-overloaded. Continue to hold warfarin due to supratherapeutic INR. If no procedures are planned, as patient is not bleeding would allow INR to drift down. Otherwise INR can be reversed if patient will need any invasive procedures. Continue current cardiac medications otherwise. Thank you for this consult. We will continue to follow. Job#: [id number] EV QIANA
[2018-09-06 13:12] VITALS: BP 99/70
[2018-09-06] MEDS ORDERED: SODIUM BICARBONATE 8.4% SYRING 150 ML in DEXTROSE 5% 1,000 ML IV SCH (14:38)
[2018-09-06] MEDS ORDERED: POLYETHYLENE GLYCOL 3350 17 GM PACK PO PRN (14:45)
[2018-09-06] MEDS: SODIUM BICARBONATE 650 MG TAB PO SCH (15:12)
--- NOTE | 2018-09-06 16:00 | NUR ---
JARAD HOSE ON BOTH LEGS
[2018-09-06] MEDS: SODIUM BICARBONATE 8.4% SYRING 150 ML in DEXTROSE 5% 1,000 ML IV SCH (16:30)
[2018-09-06 16:50] VITALS: BP 98/56
--- NOTE | 2018-09-06 19:02 | NUR ---
PT RESTING ON BED BED SIDE REPORT GIVEN TO THE ONCOMING NURSE
[2018-09-06 20:00] VITALS: BP 113/63
[2018-09-07] VITALS: BP 112/86
[2018-09-07] MEDS: ACETAMINOPHEN 325 MG TAB PO PRN (01:13)
[2018-09-07 04:00] VITALS: BP 143/66
[2018-09-07 05:15] LABS: BASOPHILS % 0.1 % (0.0-1.0); EOSINOPHILS % 0.1 % (0.0-6.0); HEMATOCRIT 38.5 % (38.2-49.6); HEMOGLOBIN 12.5 g/dL (14.0-18.0); LYMPHOCYTES # (AUTO) 0.6 (1.0-3.2); LYMPHOCYTES % 3.9 % (18.0-39.1); MEAN CORPUSCULAR HEMOGLOBIN 29.9 pg (28-32); MEAN CORPUSCULAR HGB CONC 32.5 g/dL (31-35); MEAN CORPUSCULAR VOLUME 92.1 fL (81-99); MONOCYTES # (AUTO) 1.7 (0.2-0.8); MONOCYTES % 10.3 % (4.4-11.3); NEUTROPHILS # (AUTO) 13.6 (2.1-6.9); NEUTROPHILS % 84.3 % (38.7-80.0); PLATELET COUNT 126 x10e3/uL (140-360); RED BLOOD COUNT 4.18 x10e6/uL (4.3-5.7)
[2018-09-07 05:41] LABS: ALBUMIN 3.2 g/dL (3.5-5.0); ALBUMIN/GLOBULIN RATIO 1.5 (0.8-2.0); ANION GAP 21.4 mmol/L (8-16); CALCIUM 9.4 mg/dL (8.4-10.2); CREATININE, SERUM 3.39 mg/dL (0.72-1.25); POTASSIUM 4.4 mmol/L (3.5-5.1)
[2018-09-07] MEDS ORDERED: DIATRIZOATE MEGL/DIATRIZOA SOD 30 ML BTL PO ONE (07:23)
[2018-09-07 07:35] LABS: LYMPHOCYTES % (MANUAL) 5 % (19-48); MONOCYTES % (MANUAL) 4 % (3.4-9.0); NEUTROPHILS % (MANUAL) 91 % (40-74); NUCLEATED RED BLOOD CELLS 1; PLATELET MORPHOLOGY COMMENT FEW GIANT
[2018-09-07 07:36] LABS: ANISOCYTOSIS MODERATE; HYPOCHROMASIA SLIGHT; PLATELET ESTIMATE SLIGHTLY DECREASED; RBC MORPHOLOGY COMMENT ABNORMAL
[2018-09-07 07:37] LABS: BURR CELLS SLIGHT
[2018-09-07] MEDS: INSULIN LISPRO 100 UNIT/1 ML 3ML VIAL SQ SCH ×4 (08:30→21:23)
[2018-09-07] MEDS: LIDOCAINE 5% PATCH TP SCH ×2 (09:00→13:45)
[2018-09-07 09:04] VITALS: BP 130/80
[2018-09-07] MEDS: PANTOPRAZOLE SOD 40 MG TABEC PO SCH (09:11)
[2018-09-07] MEDS: SODIUM BICARBONATE 650 MG TAB PO SCH ×2 (09:11→17:29)
[2018-09-07] MEDS: CARVEDILOL 3.125 MG TAB PO SCH ×2 (09:12→17:28)
[2018-09-07 10:21] LABS: CREATININE,URINE RANDOM 123.13 mg/dL (63-166); TOTAL PROTEIN, URINE 17.4 mg/dL (1-14)
--- NOTE | 2018-09-07 10:23 | Diagnostic Imaging Report ---
PROCEDURE: CT ABDOMEN AND PELVIS WITHOUT CONTRAST TECHNIQUE: The abdomen and pelvis were scanned utilizing a multidetector helical scanner from the diaphragm to the lesser trochanter without IV contrast. Gastrografin mixed with water was administered for GI contrast. Coronal and sagittal multiplanar reformations were obtained. Low-dose technique was utilized which included collimated exposure control or adjustment of the MAS and/or KVP according to patient size. DLP: 437.48 MGy-cm COMPARISON: [facility], CT, CT ABDOMEN/PELVIS , 11/24/2015, 16:51. INDICATIONS: BLOOD IN STOOL FINDINGS: ABSENCE OF INTRAVENOUS CONTRAST DECREASES SENSITIVITY FOR DETECTION OF FOCAL LESIONS AND VASCULAR PATHOLOGY. LOWER THORAX: Pacer leads within the heart. Right retrocrural lymph node is unchanged measuring 2.1 cm. HEPATOBILIARY: No focal hepatic lesions. No biliary ductal dilatation. SPLEEN: No splenomegaly. PANCREAS: No focal masses or ductal dilatation. ADRENALS: No adrenal nodules. KIDNEYS/URETERS: No hydronephrosis, stones, or solid mass lesions. Left cortical calcification. Multiple renal cysts again noted. There is a large exophytic left renal cyst with a maximal dimension of 9.9 cm (previously measured 8.4 cm). PELVIC ORGANS/BLADDER: Castillo catheter and air within the bladder. Diffuse bladder wall thickening. PERITONEUM / RETROPERITONEUM: Mild amount of pelvic free fluid. LYMPH NODES: No lymphadenopathy. VESSELS: Aortic, iliac, visceral vessel and femoral calcification. Aneurysmal dilatation of the aorta at these level of the celiac trunk/SMA measures 3.1 cm. GI TRACT: No distention or wall thickening. No obvious etiology for blood in the stools. BONES AND SOFT TISSUES: Fat-containing umbilical hernia. Degenerative changes of the spine. IMPRESSION: 1. Multiple renal cysts appear benign but slightly enlarged compared to the prior study. 2. Mild amount of pelvic free fluid. 3. Diffuse bladder wall thickening. 4. Aneurysmal dilatation of the abdominal aorta. Cassius Bertrand D.O. Dictated by: Cassius Bertrand D.O. on 09/07/2018 at 10:13 Electronically approved by: Cassius Bertrand D.O. on 09/07/2018 at 10:34
[2018-09-07 10:29] LABS: PROTEIN/CREATININE RATIO,URINE 0.14
[2018-09-07] MEDS: SODIUM BICARBONATE 8.4% SYRING 150 ML in DEXTROSE 5% 1,000 ML IV SCH (12:10)
--- NOTE | 2018-09-07 14:06 | NUR ---
ASSESSMENT: Spiritual distress Pt anxious about test results. Pt trying to make sense of illness/suffering. Pt' states he was raised [employer]. Pt states a counselor from [employer] has been visiting him for hours at a time. Intervention: Provided unhurried pastoral presence and empathic listening. Facilitated discussion about scripture in relation to suffering. Provided prayer. Outcome: Will follow as able. JYOTI ANDRADE Investigation Clerk Spiritual Care Department O: [phone] Pager: [phone] ([phone] number calling from)
[2018-09-07 14:16] VITALS: BP 130/80
[2018-09-07 16:19] VITALS: BP 120/70
--- NOTE | 2018-09-07 19:33 | Progress Note ---
DATE: September 07, 2018 CARDIOLOGY PROGRESS NOTE SUBJECTIVE: Patient denies chest pain. He continues to report shortness of breath. OBJECTIVE: VITAL SIGNS: Temperature 96.5 degrees, pulse 126, respiratory rate 20, blood pressure 130/80, oxygen saturation 100% on room air. GENERAL: Elderly man, in no acute distress, awake and alert. LUNGS: Clear to auscultation bilaterally. No wheezes or crackles. CARDIOVASCULAR: Normal rate, irregularly irregular. Tachycardic. ABDOMEN: Soft, nontender. EXTREMITIES: 2+ pitting edema bilaterally. CARDIAC MEDICATIONS: Carvedilol 3.125 mg p.o. b.i.d. LABS: WBC 16.07, hemoglobin 12.5, hematocrit 38.5, platelets 126,000. Sodium 133, potassium 4.4, chloride 97, CO2 19, BUN 131, creatinine 3.39. AST 272, ALT 408. TELEMETRY: Atrial fibrillation with demand ventricular pacing. IMPRESSION: 1. Gfqmj-ay-nasahmg systolic heart failure. 2. Acute kidney injury on chronic kidney disease. 3. Supratherapeutic INR. 4. Elevated liver function tests. 5. Hypotension. 6. Lactic acidosis. 7. Coronary artery disease, status post 3-vessel coronary artery bypass graft. 8. Chronic atrial fibrillation. 9. Hypertension. 10. Hyperlipidemia. 11. Diabetes mellitus. 12. Hypothyroidism. RECOMMENDATIONS: Volume measurement per nephrology given acute kidney injury. Patient may need initiation on hemodialysis for volume removal. We are holding warfarin due to supratherapeutic INR. Plan to resume once INR is therapeutic if no procedures are planned. Continue current cardiac medications. Monitor patient on telemetry. Further evaluation of elevated LFTs per GI. Thank you for this consult. We will continue to follow. Job#: [id number]
--- NOTE | 2018-09-07 19:35 | NUR ---
PATIENT RECEIVED. PATIENT IS RESTING IN BED, AAOX3. RESP EVEN AND UNLABORED. NO ACUTE DISTRESS NOTED. PATIENT DENIES OF ANY PAIN OR DISCOMFORT AT THIS TIME. STAFFORD IN PLACE, LIGHT [place] URINE. TELE IN PLACE. FAMILY AT BED SIDE. CALL LIGHT WITHIN REACH. BED LOW/LOCKED. CONTINUE TO MONITOR CLOSELY
[2018-09-07] MEDS: HYDROCODONE/APAP 5MG-325MG TAB PO PRN (23:55)
[2018-09-08] VITALS: BP 120/70
[2018-09-08 05:09] LABS: BASOPHILS % 0.1 % (0.0-1.0); EOSINOPHILS % 0.1 % (0.0-6.0); HEMATOCRIT 37.8 % (38.2-49.6); HEMOGLOBIN 12.1 g/dL (14.0-18.0); LYMPHOCYTES # (AUTO) 0.7 (1.0-3.2); LYMPHOCYTES % 4.7 % (18.0-39.1); MEAN CORPUSCULAR HEMOGLOBIN 29.5 pg (28-32); MEAN CORPUSCULAR VOLUME 92.2 fL (81-99); MONOCYTES # (AUTO) 1.3 (0.2-0.8); MONOCYTES % 8.5 % (4.4-11.3); NEUTROPHILS % 85.4 % (38.7-80.0); PLATELET COUNT 90 x10e3/uL (140-360); RED CELL DISTRIBUTION WIDTH 18.8 % (11.7-14.4)
[2018-09-08 05:44] LABS: ALBUMIN 3.3 g/dL (3.5-5.0); ALBUMIN/GLOBULIN RATIO 1.5 (0.8-2.0); ANION GAP 21.8 mmol/L (8-16); CALCIUM 9.7 mg/dL (8.4-10.2); CREATININE, SERUM 4.04 mg/dL (0.72-1.25); POTASSIUM 3.8 mmol/L (3.5-5.1)
[2018-09-08 06:00] VITALS: BP 130/71
[2018-09-08 07:45] VITALS: BP 130/71
--- NOTE | 2018-09-08 09:54 | NUR ---
ASSESSMENT: Spiritual distress Pt feels helpless due to anxiety. Pt states he has been troubled with nightmares for almost a month resulting in sleep deprivation. Pt states some of his friends have been spending the night because "human presence" helps mitigate his fears. Intervention: Provided unhurried calming presence. Facilitated illness review. Provided suggestions from spiritual perspective. Outcome: Pt expressed appreciation for visit. Will continue to follow as able. JYOTI ANDRADE Thermoplastic Technician Spiritual Care Department O: [phone] Pager: [phone] ([phone] number calling from)
[2018-09-08] MEDS: SODIUM BICARBONATE 650 MG TAB PO SCH ×2 (09:55→17:07)
[2018-09-08] MEDS: PANTOPRAZOLE SOD 40 MG TABEC PO SCH (09:55)
[2018-09-08] MEDS: INSULIN LISPRO 100 UNIT/1 ML 3ML VIAL SQ SCH ×4 (09:55→21:00)
[2018-09-08] MEDS: CARVEDILOL 3.125 MG TAB PO SCH (09:56)
[2018-09-08 10:11] LABS: HYPOCHROMASIA SLIGHT; RBC MORPHOLOGY COMMENT ABNORMAL
[2018-09-08 10:12] LABS: ANISOCYTOSIS MODE; PLATELET ESTIMATE SLIGHTLY DECREASED; PLATELET MORPHOLOGY COMMENT FEW GIANT; POIKILOCYTOSIS SLIGHT
[2018-09-08 10:50] LABS: PROTHROMBIN TIME 58.6 seconds (11.9-14.5)
[2018-09-08 10:58] LABS: INR 6.19
--- NOTE | 2018-09-08 11:05 | Progress Note ---
DATE: September 08, 2018 CARDIOLOGY PROGRESS NOTE SUBJECTIVE: Patient denies chest pain. He continues to complain of shortness of breath. OBJECTIVE VITALS: Temperature 96.6 degrees, pulse 116, respiratory rate 20, blood pressure 130/71, oxygen saturation 97% on nasal cannula. GENERAL: Elderly man in no acute distress, awake and alert, sitting up in a chair. LUNGS: Clear to auscultation bilaterally. No wheezes or crackles. CARDIOVASCULAR: Tachycardic, irregularly irregular. Normal S1 and S2. ABDOMEN: Soft, nontender. EXTREMITIES: 2+ pitting edema bilaterally. CARDIAC MEDICATIONS: Carvedilol 3.125 mg p.o. b.i.d. LABS: WBC 15.21, hemoglobin 12.1, hematocrit 37.8, platelets 90. Sodium 132, potassium 3.8, chloride 91, CO2 23, BUN 133, creatinine 4.04. AST 390, ALT 685. TELEMETRY: Atrial fibrillation with rapid ventricular response and demand ventricular pacing. IMPRESSION 1. Iihte-nq-icidiix systolic heart failure. 2. Acute kidney injury on chronic kidney disease. 3. Supratherapeutic international normalization ratio. 4. Elevated liver function tests. 5. Atrial fibrillation with rapid ventricular response. 6. Coronary artery disease, status post 3-vessel coronary artery bypass graft. 7. Hypertension. 8. Hyperlipidemia. 9. Diabetes mellitus. 10. Hypothyroidism. RECOMMENDATIONS: Discontinue carvedilol and start metoprolol. Titrate up for rate control. Continue monitoring the patient on telemetry. Given the patient's worsening renal function as well as continued shortness of breath, suspect the patient needs initiation on hemodialysis for volume removal. Continue to hold warfarin due to supratherapeutic INR. Will check INR today. However, we will hold resuming until we have clarified whether the patient will be started on hemodialysis. Thank you for this consult. We will continue to follow. Job#: [id number]
--- NOTE | 2018-09-08 11:06 | NUR ---
LAB CALLED FOR CRITICAL INR 6.19, DR BHANDARI PAGED AWAITING CALL BACK
[2018-09-08] MEDS: SODIUM BICARBONATE 8.4% SYRING 150 ML in DEXTROSE 5% 1,000 ML IV SCH (11:48)
[2018-09-08] MEDS: METOPROLOL TARTRATE 25 MG TAB PO SCH ×3 (12:52→22:54)
--- NOTE | 2018-09-08 13:23 | NUR ---
DR BHANDARI NOTIFIED OF PT INR 6.19 NO NEW ORDERS, CONTINUE TO MONITOR AND RECHECK INR IN AM. ORDERED FOR A REGULAR DIET PER ELECTRIC CRANE OPERATOR RECOMMENDATIONS OF PT REFUSING TO EAT BECAUSE HE NEEDS HIS REGULAR DIET VERSUS LOW SODIUM.
[2018-09-08] MEDS ORDERED: PHYTONADIONE 5 MG TAB PO ONE (15:00)
--- NOTE | 2018-09-08 16:15 | NUR ---
Nutrition Screen Note RD Recommendation for Physician: -Rec to liberalize diet to regular (due to poor appetite, poor PO, low Na level) -Pt is not interested in supplements. 09/08 -Consider probiotics to promote gut health (diarrhea reported by pt) -Strict I&O Plan of Care: RD following, monitoring for tolerance and adequacy Nutrition reason for involvement: Diagnosis Primary Diagnose(s): 1. Qssfv-vg-nhkchap systolic heart failure. 2. Acute kidney injury on chronic kidney disease. 3. Supratherapeutic international normalization ratio. 4. Elevated liver function tests. 5. Atrial fibrillation with rapid ventricular response. PMH: coronary artery disease status post myocardial infarction and 3-vessel CABG, chronic systolic and diastolic heart failure, atrial fibrillation, diabetes mellitus, hyperlipidemia, hypertension and chronic kidney disease Ht: 66in Wt: 170lb BMI: 27.4kg/m2 IBW: 154lb RD Assessment: (09/08) Chart reviewed. Labs and meds reviewed. 67yo M, who is admitted for SOB. Visited pt in the room. Pt reports having poor appetite for 6 weeks due to being in and out of the hospital. Pt also complains of not liking hospital foods. Sodium level is low: RD do not rec low sodium diet. Renal fx is worsening; unclear if pt will be on HD. Pt denies any nausea, vomiting or abdominal pain. LBM 1/9 per chart. Pt states I have diarrhea for weeks, possibly due to meds and frequent hospitalization. Pt denies any chewing or swallowing difficulty. Pt doesnt know if he has lost any weight, due to fluid retention. Will continue to monitor and follow. Current Diet: ADA diet Malnutrition Evaluation (09/08/2018) The patient does not meet criteria for a specified degree of malnutrition at this time. Will re-evaluate at follow-up as appropriate. Diet Education Needs Assessment: Diet education not indicated. Nutrition Care Level: mod Signed: Torie Cadet, MS, RD, LD
--- NOTE | 2018-09-08 18:27 | NUR ---
PT WANTS HIS STAFFORD OUT, DR ROXANA YUSUF, AWAITING CALL BACK.
--- NOTE | 2018-09-08 18:43 | NUR ---
DR CEDENO COVERING FOR DR SCHMIDT ORDERS TO Jorge STAFFORD.
--- NOTE | 2018-09-08 19:25 | NUR ---
PATIENT RECEIVED. PATIENT IS RESTING IN BED, AAOX3. RESP EVEN AND UNLABORED. NO ACUTE DISTRESS NOTED. PATIENT DENIES OF ANY PAIN OR DISCOMFORT AT THIS TIME. TELE IN PLACE. FAMILY AT BED SIDE. CALL LIGHT WITHIN REACH. BED LOW/LOCKED. CONTINUE TO MONITOR CLOSELY
[2018-09-08 20:45] VITALS: BP 117/71
[2018-09-08] MEDS: ACETAMINOPHEN 325 MG TAB PO PRN (22:23)
[2018-09-09] VITALS (15 sets, daily range): BP systolic 78–150; BP diastolic 58–108
[2018-09-09 05:49] LABS: INR 5.21; PROTHROMBIN TIME 51.2 seconds (11.9-14.5)
[2018-09-09] MEDS: METOPROLOL TARTRATE 25 MG TAB PO SCH ×4 (06:00→23:28)
[2018-09-09 06:04] LABS: ALBUMIN 3.2 g/dL (3.5-5.0); ALBUMIN/GLOBULIN RATIO 1.6 (0.8-2.0); ANION GAP 24.3 mmol/L (8-16); CALCIUM 9.4 mg/dL (8.4-10.2); CREATININE, SERUM 4.5 mg/dL (0.72-1.25); POTASSIUM 4.3 mmol/L (3.5-5.1)
[2018-09-09 06:21] LABS: BASOPHILS % 0.1 % (0.0-1.0); EOSINOPHILS % 0.1 % (0.0-6.0); HEMATOCRIT 38.7 % (38.2-49.6); HEMOGLOBIN 12.3 g/dL (14.0-18.0); LYMPHOCYTES # (AUTO) 0.8 (1.0-3.2); LYMPHOCYTES % 4.6 % (18.0-39.1); MEAN CORPUSCULAR HEMOGLOBIN 29.4 pg (28-32); MEAN CORPUSCULAR HGB CONC 31.8 g/dL (31-35); MEAN CORPUSCULAR VOLUME 92.4 fL (81-99); MONOCYTES # (AUTO) 1.5 (0.2-0.8); MONOCYTES % 8.9 % (4.4-11.3); NEUTROPHILS # (AUTO) 14.4 (2.1-6.9); NEUTROPHILS % 85.3 % (38.7-80.0); PLATELET COUNT 66 x10e3/uL (140-360); RED BLOOD COUNT 4.19 x10e6/uL (4.3-5.7); RED CELL DISTRIBUTION WIDTH 18.6 % (11.7-14.4)
[2018-09-09] MEDS: INSULIN LISPRO 100 UNIT/1 ML 3ML VIAL SQ SCH ×4 (07:30→21:00)
--- NOTE | 2018-09-09 09:46 | NUR ---
CASE MANAGEMENT INITIAL ASSESSMENT Insurance Counsel to bedside to discuss plan of care with patient/family. CM/SW role and care transitions discussed. Anticipated discharge plan discussed along with duration of care. CM discussed patients right to make decisions in care. CM/SW work hours given. Patient lives: PATIENT LIVES IN [address] HOME WITH BUBBA IN [facility] [id number] Admit/Transfer: ED POA/Emergency contact: BUBBA FELICIANO- [phone] Current/Previous Home Health: NONE PCP/Follow-up Care: N/A Current/Previous DME: HIRAM Other Services: NONE Employment Status: EMPLOYED Areas of Concerns: NONE AT THIS TIME Referral Needs: POSSIBLE DIALYSIS CHAIR IF LABS DO NOT IMPROVE Education Needs: NONE IMM/GOODWIN given and signed (if applicable): IMM Goal for discharge: DISCHARGE HOME NO NEEDS CM left business card at the bedside with contact information. Name and number was also written on the patients whiteboard. Patient verbalized understanding of discussion. CM will follow-up with ongoing discharge and transition of care needs.
[2018-09-09] MEDS: PANTOPRAZOLE SOD 40 MG TABEC PO SCH (10:35)
[2018-09-09] MEDS: SODIUM BICARBONATE 650 MG TAB PO SCH ×2 (10:35→18:33)
[2018-09-09] MEDS: LIDOCAINE 5% PATCH TP SCH (10:35)
--- NOTE | 2018-09-09 10:35 | NUR ---
PT PLACEMENT OF TUNNELED HEMODIALYSIS CATHETER CANCELLED DUE TO INCREASE INR . RESCHEDULED FOR WEDNESDAY NEXT WEEK. PT AM MEDS GIVEN AT THIS TIME.
--- NOTE | 2018-09-09 10:45 | NUR ---
ASSESSMENT: Spiritual concern Pt hopeful following physician visit. Pt states he was less apprehensive after his doctor explained his illness in detail. Pt states he was able to get sleep following that visit. Intervention: Provided calming presence and empathic listening. Outcome: Pt requests follow-up visit Wednesday (09/12). [facility] Spiritual Care Department O: [phone] Pager: [phone] ([phone] number calling from)
--- NOTE | 2018-09-09 12:03 | NUR ---
DR RÍOS ORDERED FOR A TEMPORARY DIALYSIS CATHETER TO BE PUT IN, CRYSTAL CALLED FROM RADIOLOGY DEPT STATING THE RADIOLOGIST STILL WILL NOT DO IT BECAUSE OF HIS INCREASE INR . DR RÍOS NOTIFIED AND HE GOT THE NUMBER TO TALK WITH RADIOLOGIST.
--- NOTE | 2018-09-09 12:15 | NUR ---
PT B/P 96/72, LOPRESSOR 12.5MG NOT GIVEN.
--- NOTE | 2018-09-09 12:40 | Progress Note ---
DATE: September 09, 2018 CARDIOLOGY PROGRESS NOTE SUBJECTIVE: The patient denies chest pain. He is still short of breath when he lays flat. OBJECTIVE VITALS: Temperature 96 degrees, pulse 100, respiratory rate 20, blood pressure 97/50, oxygen saturation 96% on room air. GENERAL: Elderly man in no acute distress. Awake, alert and sitting up in chair. LUNGS: Clear to auscultation bilaterally. No wheezes or crackles. CARDIOVASCULAR: Tachycardic. Irregularly irregular. Normal S1 and S2. ABDOMEN: Soft and nontender. EXTREMITIES: Two plus pitting edema bilaterally. CARDIAC MEDICATIONS: Metoprolol tartrate 12.5 mg p.o. q.6 h. LABS: WBC 16.83, hemoglobin 12.3, hematocrit 38.7, and platelets 66,000. Sodium 136, potassium 4.3, chloride 93, CO2 26, BUN 140, creatinine 4.5, AST 427, ALT 800, alk phos 185. INR 5.21. Telemetry is atrial fibrillation with rapid ventricular response and demand ventricular pacing. IMPRESSION 1. Czanx-wf-tegtddv systolic heart failure. 2. Acute kidney injury on chronic kidney disease. 3. Supratherapeutic INR. 4. Elevated liver function tests. 5. Atrial fibrillation with rapid ventricular response. 6. Coronary artery disease: Status post 3-vessel coronary artery bypass graft. 7. Hypertension. 8. Hyperlipidemia. 9. Diabetes mellitus. 10. Hypothyroidism. RECOMMENDATIONS: The patient's rate is not well controlled. Continue metoprolol. I believe increased beta blockade is limited by hypotension. Monitor the patient closely on telemetry. The patient is planned for dialysis initiation. Additional vitamin K and FFP as necessary for procedure. Given the patient's rise in creatinine, as well as LFTs and supratherapeutic INR, suspect this is related to congestive hepatopathy, as well as cardiorenal syndrome. The patient needs volume removal. Will monitor response. Continue to hold warfarin. Thank you for this consult. We will continue to follow. Job#: [id number] BLAZE
[2018-09-09] MEDS ORDERED: PHYTONADIONE 10 MG/ML AMP SC ONE (12:45)
--- NOTE | 2018-09-09 13:02 | Diagnostic Imaging Report ---
EXAM: Right upper quadrant abdominal ultrasound INDICATION: Rule out portal vein thrombosis. COMPARISON: CT abdomen pelvis without contrast 09/07/2018. TECHNIQUE: Transverse and longitudinal images of the right upper quadrant abdomen were obtained FINDINGS: Liver: Size: Measures 14.8 cm in the right midclavicular line, normal Appearance: Normal echogenicity, smooth contour Mass: No focal masses Gallbladder: There is gallbladder sludge. No evidence of distention, pericholecystic fluid, wall thickening, stone, or reported sonographic Casas's sign. Gallbladder wall measures 0.3 cm. Bile Ducts: Intrahepatic Ducts: No dilatation Extrahepatic Ducts: Common bile duct measures 0.5 cm, no dilatation Pancreas: Visualized portions of the pancreatic head, neck and proximal body are normal. Kidney: The right kidney measures 10.5 cm without evidence of hydronephrosis or stone. Multiple right-sided simple appearing renal cysts, largest measuring up to 2.6 cm. Vessels: Aorta: Limited visualization due to overlying bowel gas. Inferior Vena Cava: Visualized portions are normal Main Portal Vein: Measures 0.7 cm, normal size with hepatopetal flow. Slightly decreased portal venous peak velocities (up to 12 cm/s). Free Fluid: No evidence of ascites. IMPRESSION: Patent portal vein. Doppler waveforms demonstrate slightly decreased portal venous velocities (up to 12 cm/s), a non-specific finding. Finding could be seen in portal hypertension, however there is no sonographic evidence of cirrhosis or specific signs of portal hypertension such as hepatofugal flow. Gallbladder sludge without sonographic evidence of cholecystitis. Signed by: Dr. Marques Monroe MD on 09/09/2018 12:58 PM
--- NOTE | 2018-09-09 13:13 | NUR ---
VIT K ADMINISTERED ORDERED
--- NOTE | 2018-09-09 13:46 | NUR ---
AWAITING A BED , PT TO BE MOVED TO ICU.
--- NOTE | 2018-09-09 13:49 | NUR ---
PT HAS A CHANGE IN MENTAL STATUS, DECREASED ALERTNESS, SLEEPY, EASILY AROUSABLE. CARPENTRY TEACHER TANIA NOTIFIED AND DR KAMARA AWARE AND SHE HAS ORDERS INPLACE, CONTINUE TO WAIT FOR A BED IN ICU.
--- NOTE | 2018-09-09 14:35 | NUR ---
PT STILL AWAITING A BED IN ICU V/S 92/78, 108, 100% ON 0.5 02 N/C, 18, 96.1. PT ALERT AND AWAKE, VISITING WITH A FRIEND. WILL CONTINUE TO MONITOR.
--- NOTE | 2018-09-09 15:24 | Progress Note ---
DATE: 09.09.2018 NEPHROLOGY FOLLOWUP NOTE SUBJECTIVE: Remains swollen. No nausea or vomiting. Awaits catheter. However, his INR is high because of which it is being held. OBJECTIVE: Temperature 96.7, pulse 111. Extremities have 2 to 3+ edema. Chest: Diminished breath sounds. JVD is present. LABS: Hemoglobin 12.3, K 4.3, creatinine 4.5, BUN 140. ASSESSMENT 1. Acute kidney injury, fluid overload. 2. Supratherapeutic international normalization ratio. 3. History of cirrhosis. PLAN: Await catheter placement. We will do it as soon as it is felt safe. Although the patient is scheduled for a tunneled catheter, it may be safer to do a temporary one. Will follow along. At this point, we are waiting for the INR to come down. We will follow along. Of note, he did receive some vitamin K yesterday. Job#: [id number] MARTIN KIRAN
--- NOTE | 2018-09-09 16:30 | NUR ---
PT CLINICALS FAXED TO [facility] TO START PROCESS, WAITING ON LABS, CATH PLACEMENT AND DIALYSIS NOTES TO FAX UPDATES TO CONTINUE PROCESS
--- NOTE | 2018-09-09 17:51 | NUR ---
2nd unit FFP STARTED
--- NOTE | 2018-09-09 18:32 | NUR ---
PT TRANSFERRED TO ICU THIS EVENING 1630.
[2018-09-09] MEDS: DOBUtamine HCL 500MG/D5W 250ML 250 ML IV SCH (18:52)
--- NOTE | 2018-09-09 19:11 | Diagnostic Imaging Report ---
EXAM: CHEST XRAY LINE PLACEMENT, PA and lateral DATE: 09/09/2018 6:14 PM INDICATION: Line placement. COMPARISON: 09/05/2018. FINDINGS: The lateral most right hemithorax was not included. LINES/TUBES: Interval placement of a right neck central venous catheter with distal tip projected on the cavoatrial junction. Left-sided triple-lumen cardiac device unchanged. LUNGS: Mild pulmonary vascular congestion appears somewhat increased since the prior examination. PLEURA: No effusions or pneumothorax. HEART AND MEDIASTINUM: The cardiac silhouette is moderately enlarged. Median sternotomy wires. BONES AND SOFT TISSUES: Degenerative changes of the spine. IMPRESSION: 1. Interval placement of a right neck central venous catheter with distal tip projected on the cavoatrial junction. 2. Mild worsening of bilateral pulmonary vascular congestion. Signed by: Dr. Elsie Brown M.D. on 09/09/2018 7:08 PM
[2018-09-09] MEDS: HYDROCODONE/APAP 5MG-325MG TAB PO PRN (19:41)
[2018-09-09] MEDS ORDERED: MANNITOL 25% 12.5GM/50ML 100 ML ONE (19:55)
[2018-09-09] MEDS ORDERED: SODIUM CHLORIDE 0.9% 1000ML 2,000 ML ONE (19:56)
[2018-09-09] MEDS ORDERED: ALBUMIN 25% 12.5GM 0.25 GM/ML BTL IV PRN (20:15)
[2018-09-09] MEDS ORDERED: HEPARIN SOD (PORCINE) 1000 UNIT/ML SDV IV PRN (20:15)
[2018-09-09] MEDS ORDERED: SODIUM CHLORIDE 0.9% 250ML 500 ML IV PRN (20:15)
[2018-09-09] MEDS ORDERED: SODIUM CHLORIDE 0.9% 1000ML 2,000 ML IV PRN (20:15)
[2018-09-09] MEDS ORDERED: MANNITOL 25% 12.5GM/50 ML VIAL IV PRN (20:15)
[2018-09-09] MEDS ORDERED: ALPRAZOLAM 0.25 MG TAB PO ONE (20:30)
[2018-09-09] MEDS ORDERED: HYDROMORPHONE 1MG/1ML INJ IV PRN (20:30)
[2018-09-09] MEDS ORDERED: HYDROMORPHONE 2MG/ML 2 MG/ML ML ONE (20:37)
[2018-09-09] MEDS: HYDROMORPHONE 2MG/ML 2 MG/ML ML IV PRN (20:43)
[2018-09-10] VITALS (25 sets, daily range): BP systolic 82–129; BP diastolic 52–90
[2018-09-10] MEDS: HYDROMORPHONE 2MG/ML 2 MG/ML ML IV PRN (01:42)
[2018-09-10 04:34] LABS: BASOPHILS % 0.1 % (0.0-1.0); HEMATOCRIT 34.6 % (38.2-49.6); HEMOGLOBIN 10.7 g/dL (14.0-18.0); LYMPHOCYTES # (AUTO) 0.3 (1.0-3.2); LYMPHOCYTES % 2.1 % (18.0-39.1); MEAN CORPUSCULAR HEMOGLOBIN 29.2 pg (28-32); MEAN CORPUSCULAR HGB CONC 30.9 g/dL (31-35); MEAN CORPUSCULAR VOLUME 94.5 fL (81-99); MONOCYTES # (AUTO) 1.1 (0.2-0.8); MONOCYTES % 7.8 % (4.4-11.3); NEUTROPHILS % 88.8 % (38.7-80.0); RED BLOOD COUNT 3.66 x10e6/uL (4.3-5.7)
[2018-09-10 04:38] LABS: PLATELET COUNT 49 x10e3/uL (140-360)
[2018-09-10 04:45] LABS: INR 1.89; PROTHROMBIN TIME 23.2 seconds (11.9-14.5)
[2018-09-10 04:55] LABS: ALBUMIN 3.3 g/dL (3.5-5.0); ALBUMIN/GLOBULIN RATIO 1.7 (0.8-2.0); ANION GAP 24.7 mmol/L (8-16); CALCIUM 9.3 mg/dL (8.4-10.2); CREATININE, SERUM 4.42 mg/dL (0.72-1.25); POTASSIUM 4.7 mmol/L (3.5-5.1)
[2018-09-10] MEDS: METOPROLOL TARTRATE 25 MG TAB PO SCH ×3 (05:11→18:28)
[2018-09-10] MEDS: INSULIN LISPRO 100 UNIT/1 ML 3ML VIAL SQ SCH ×4 (07:30→21:00)
[2018-09-10] MEDS: PANTOPRAZOLE SOD 40 MG TABEC PO SCH (08:31)
[2018-09-10] MEDS: SODIUM BICARBONATE 650 MG TAB PO SCH (08:31)
[2018-09-10] MEDS: LIDOCAINE 5% PATCH TP SCH (08:31)
[2018-09-10] MEDS: HYDROCODONE/APAP 5MG-325MG TAB PO PRN (08:41)
--- NOTE | 2018-09-10 08:58 | Diagnostic Imaging Report ---
Procedure: Right internal jugular non-tunneled hemodialysis catheter placement with ultrasound guidance assistant press operator: Dr. Marques Monroe Pre-operative diagnosis: Requiring HD access. Post-operative diagnosis: Status post HD access Sedation: Local Additional Medications: Lidocaine 1% for local anesthesia Estimated blood loss: None Specimens: None Implants: 13 Fr x 15 cm Trialysis non-tunneled hemodialysis catheter TECHNIQUE/FINDINGS: Informed consent was obtained from the patient and documented in the medical record after discussion of risks and benefits. Of note, given the patient's elevated INR, the increased bleeding risk was discussed with the patient and informed consent was obtained. Three jumbo packs of FFP were ordered, one was administered pre-procedurally, additional was started pre-procedurally and continued intra-procedurally, and an additional post-procedurally. Given the transfer from the floor to the ICU and concern for volume overload and requirement for urgent dialysis, decision made to proceed with non-tunneled hemodialysis catheter placement. The patient was placed in the supine position. Preliminary sonographic evaluation of the right neck confirmed a patent and compressible right internal jugular vein. A permanent sonographic image was stored for the medical record. The neck was then prepped and draped in a standard sterile fashion. Subsequently, 1% lidocaine was infiltrated into the skin and subcutaneous tissues for local anesthesia. Then under continuous sonographic guidance, a 21 gauge needle was advanced into the right internal jugular vein and an .018'' wire was placed. A 5 Fr micropuncture sheath was placed and the existing wire was exchanged for an .035'' Amplatz wire. The tract was sequentially dilated. Then, a 13 Fr x 15 cm Trialysis triple lumen non-tunneled hemodialysis catheter was advanced. The wire was then removed. Each lumen was tested and showed adequate bidirectional flow. The catheter was secured to the skin with Monocryl, flushed with saline, and covered by a sterile dressing. No evidence of immediate complication. IMPRESSION: Placement of a right IJ non-tunneled triple lumen hemodialysis catheter with ultrasound guidance as above. Signed by: Dr. Marques Monroe MD on 09/10/2018 8:55 AM
[2018-09-10] MEDS: DOBUtamine HCL 500MG/D5W 250ML 250 ML IV SCH ×2 (11:00→15:33)
--- NOTE | 2018-09-10 11:54 | Progress Note ---
DATE: September 10, 2018 SUBJECTIVE: Got catheter. Had dialysis yesterday. For dialysis again today. BUN is still in the 100s. She is confused. Serum ammonia is also high. OBJECTIVE GENERAL: Sitting up, in no distress. VITALS: Temperature is 97.5, pulse 105, blood pressure 109/78. CHEST: Clear with diminished breath sounds at the bases. ABDOMEN: Some distention. NEURO: Confusion. EXTREMITIES: 1 to 2+ edema. LABS: Hemoglobin is 10.7, K is 4.7, creatinine is 4.42, BUN 121. Liver enzymes remain elevated. ASSESSMENT 1. Fluid overload. Acute kidney injury probably cardiorenal syndrome as well as any liver disease induced renal vasoconstriction. 2. Delirium which is multifactorial including from the high ammonia levels. PLAN: Repeat hemodialysis today. Plan a 3-hour run, 3 potassium bath F160 filter. Blood flow rate 300 mL per minute. Dialysis flow rate at 600 mL per minute. Plan to remove another 2 to 3 liters as the blood pressure tolerates. We will follow along with you. Job#: [id number] KAREN
--- NOTE | 2018-09-10 15:51 | Progress Note ---
DATE: September 10, 2018 CARDIOLOGY PROGRESS NOTE SUBJECTIVE: No major events overnight. Patient says he feels more energetic. Denies any chest pain or shortness of breath. Little confused. OBJECTIVE VITAL SIGNS: Temperature 98.8, pulse 101, respiratory rate 14, blood pressure 127/72, satting 100% on 2 liters nasal cannula. GENERAL: Elderly man in no acute distress. Alert and awake, slightly confused. CARDIOVASCULAR: Tachycardiac, irregular. Normal S1, S2. LUNGS: Clear to auscultation anteriorly. Decreased breath sounds at the bases. ABDOMEN: Soft, nontender, mildly distended. EXTREMITIES: 2+ pitting edema bilaterally. NEURO AND PSYCH: Alert and oriented to person, place, and time. Normal affect. CARDIOVASCULAR MEDICATIONS: Reviewed. LABORATORY DATA: Reviewed. Worsening liver function and platelets as well as poor renal function noted. ASSESSMENT AND PLAN 1. Kgnku-ms-rylojzs systolic heart failure. 2. Acute kidney injury on chronic kidney disease. 3. Acute liver dysfunction likely secondary to congestive hepatopathy. 4. Supratherapeutic INR. 5. Elevated liver function test. 6. Atrial fibrillation with rapid ventricular response. 7. Coronary artery disease, status post bypass surgery in the past. 8. Hypertension. 9. Hyperlipidemia. 10. Diabetes. 11. Hypothyroidism. RECOMMENDATIONS: Patient is pending dialysis today despite being on dobutamine and high dose diuretics. No significant urine output. Liver function continues to worsen, likely secondary to congestive hepatopathy. Avoid any medications that may adversely affect the liver. Hopefully, liver function improves once dialysis is started and patient's volume status improves. Continue dobutamine for now to improve cardiac output and to relieve some other hepatic congestion. Thank you for this consult. We will continue to follow. Job#: [id number] SURESH
[2018-09-11] VITALS (26 sets, daily range): BP systolic 75–105; BP diastolic 45–92
[2018-09-11 04:45] LABS: BASOPHILS % 0.2 % (0.0-1.0); EOSINOPHILS % 0.1 % (0.0-6.0); HEMATOCRIT 37.7 % (38.2-49.6); HEMOGLOBIN 11.4 g/dL (14.0-18.0); LYMPHOCYTES # (AUTO) 0.6 (1.0-3.2); LYMPHOCYTES % 4.4 % (18.0-39.1); MEAN CORPUSCULAR HGB CONC 30.2 g/dL (31-35); MEAN CORPUSCULAR VOLUME 95.9 fL (81-99); MONOCYTES % 8.2 % (4.4-11.3); NEUTROPHILS # (AUTO) 10.9 (2.1-6.9); NEUTROPHILS % 86.2 % (38.7-80.0); RED BLOOD COUNT 3.93 x10e6/uL (4.3-5.7)
[2018-09-11 04:52] LABS: PLATELET COUNT 49 x10e3/uL (140-360)
[2018-09-11 04:59] LABS: INR 1.59; PROTHROMBIN TIME 20.3 seconds (11.9-14.5)
[2018-09-11 05:08] LABS: ALBUMIN 3.5 g/dL (3.5-5.0); ALBUMIN/GLOBULIN RATIO 1.8 (0.8-2.0); ANION GAP 23.4 mmol/L (8-16); CALCIUM 9.6 mg/dL (8.4-10.2); CREATININE, SERUM 4.28 mg/dL (0.72-1.25); POTASSIUM 4.4 mmol/L (3.5-5.1)
[2018-09-11] MEDS: METOPROLOL TARTRATE 25 MG TAB PO SCH ×4 (05:49→17:49)
[2018-09-11] MEDS: INSULIN LISPRO 100 UNIT/1 ML 3ML VIAL SQ SCH ×4 (07:26→21:00)
[2018-09-11] MEDS: DOBUtamine HCL 500MG/D5W 250ML 250 ML IV SCH (08:00)
[2018-09-11] MEDS: PANTOPRAZOLE SOD 40 MG TABEC PO SCH (09:08)
[2018-09-11] MEDS: LIDOCAINE 5% PATCH TP SCH (09:08)
--- NOTE | 2018-09-11 16:26 | Progress Note ---
DATE: September 11, 2018 CARDIOLOGY PROGRESS NOTE SUBJECTIVE: No major events overnight. Had first round of dialysis yesterday. OBJECTIVE VITAL SIGNS: Temperature 98.1, pulse 99, respiratory rate 14, blood pressure 92/73, saturating 100% on room air. GENERAL: Elderly man, no acute distress. Alert, awake, slightly confused. CARDIOVASCULAR: Tachycardic, irregular. Normal S1, S2. LUNGS: Clear to auscultation bilaterally. Decreased breath sounds at the bases. ABDOMEN: Soft, nontender. Mildly distended. EXTREMITIES: 2+ pitting edema bilaterally. NEURO AND PSYCH: Alert and oriented to person, place, and time. Normal affect. CARDIOVASCULAR MEDICATIONS: Reviewed. LABORATORY DATA: Reviewed. Liver function is slightly improved. Platelets remain low. ASSESSMENT AND PLAN 1. Tkvus-rt-kumsvuv systolic heart failure. 2. Acute kidney injury on chronic kidney disease. 3. Acute liver dysfunction likely secondary to congestive hepatopathy. 4. Supratherapeutic INR. 5. Elevated liver function tests. 6. Atrial fibrillation with rapid ventricular response. 7. Coronary artery disease, status post bypass surgery in the past. 8. Hypertension. 9. Hyperlipidemia. 10. Diabetes. 11. Hypothyroidism. RECOMMENDATIONS: We will continue dobutamine for one more day until he gets the second day of dialysis to improve volume. Once his condition is improved, we will discontinue dobutamine. Although his labs are improved, prognosis still remains guarded. Thank you for this consult. We will continue to follow. Job#: [id number] LPA
[2018-09-12] VITALS (34 sets, daily range): BP systolic 70–151; BP diastolic 56–123
[2018-09-12] MEDS: METOPROLOL TARTRATE 25 MG TAB PO SCH ×4 (00:45→18:06)
[2018-09-12 04:33] LABS: BASOPHILS % 0.1 % (0.0-1.0); EOSINOPHILS % 0.2 % (0.0-6.0); HEMOGLOBIN 11.2 g/dL (14.0-18.0); LYMPHOCYTES # (AUTO) 0.5 (1.0-3.2); LYMPHOCYTES % 4.3 % (18.0-39.1); MEAN CORPUSCULAR HEMOGLOBIN 29.4 pg (28-32); MEAN CORPUSCULAR HGB CONC 31.1 g/dL (31-35); MEAN CORPUSCULAR VOLUME 94.5 fL (81-99); MONOCYTES # (AUTO) 1.2 (0.2-0.8); MONOCYTES % 9.4 % (4.4-11.3); NEUTROPHILS # (AUTO) 10.7 (2.1-6.9); PLATELET COUNT 51 x10e3/uL (140-360); RED BLOOD COUNT 3.81 x10e6/uL (4.3-5.7); RED CELL DISTRIBUTION WIDTH 18.8 % (11.7-14.4)
[2018-09-12] MEDS: DOBUtamine HCL 500MG/D5W 250ML 250 ML IV SCH (04:39)
[2018-09-12 04:44] LABS: INR 1.35; PROTHROMBIN TIME 17.8 seconds (11.9-14.5)
[2018-09-12 04:56] LABS: ALBUMIN 3.3 g/dL (3.5-5.0); ALBUMIN/GLOBULIN RATIO 1.7 (0.8-2.0); ANION GAP 20.1 mmol/L (8-16); CALCIUM 9.2 mg/dL (8.4-10.2); CREATININE, SERUM 5.02 mg/dL (0.72-1.25); POTASSIUM 4.1 mmol/L (3.5-5.1)
--- NOTE | 2018-09-12 07:15 | NUR ---
Bedside report rec'd from NAEEM Dela Cruz. Call from denture laboratory technician, patient to have tunneled dialysis catheter placed this a.m. Patient states he has not had anything to eat or drink since before midnight.
[2018-09-12] MEDS: INSULIN LISPRO 100 UNIT/1 ML 3ML VIAL SQ SCH ×4 (07:30→21:29)
--- NOTE | 2018-09-12 08:30 | NUR ---
Dr Christopher to bedside. Orders rec'd.
[2018-09-12] MEDS ORDERED: FENTANYL CITRATE/PF 100MCG/2 ML INJ ONE (08:38)
[2018-09-12] MEDS ORDERED: LIDOCAINE HCL 1% LOCAL INJ 20 ML VIAL ONE (08:38)
[2018-09-12] MEDS ORDERED: SODIUM CHLORIDE 0.9% 500ML 1,000 ML ONE (08:38)
[2018-09-12] MEDS ORDERED: MIDAZOLAM HCL 2 MG/2 ML VIAL ONE (08:38)
--- NOTE | 2018-09-12 08:38 | NUR ---
Spoke with Megan Gaspar who states Dr Whelan is aware of the new consult.
--- NOTE | 2018-09-12 08:55 | NUR ---
Witnessed patient giving his friend, Lyle Roy, his personal belongings.
--- NOTE | 2018-09-12 08:58 | NUR ---
Patient to micro lab analyst for tunneled HD catheter placement via bed.
[2018-09-12] MEDS ORDERED: QUETIAPINE FUMARATE 25 MG TAB PO SCH (09:00)
--- NOTE | 2018-09-12 09:15 | Progress Note ---
DATE: September 12, 2018 Feels okay. Blood pressure has been running on the low side. Swelling is much improved. OBJECTIVE VITALS: Temperature 98.1, pulse rate 103 and irregular, blood pressure 90/70. CHEST: Clear. EXTREMITIES: Trace to 1+ edema on compression stockings. NEURO: More alert. He is more appropriate today. Sodium 135, BUN is 103 and climbing when he does not have dialysis. Creatinine is 5. ASSESSMENT 1. Acute kidney injury, possibly hepatorenal syndrome/cardiorenal syndrome. 2. Acute tubular necrosis seems less likely given the entirely bland urine when this started. 3. Underlying history of cirrhosis. PLAN: Await tunneled dialysis catheter. Hemodialysis again. Plan a 4-hour run and another 2 L of fluid removal, 2 potassium bath, blood flow rate 350 mL per minute, dialysate fluid 500 mL per minute. Will follow along. Job#: [id number] DC
[2018-09-12] MEDS: LIDOCAINE 5% PATCH TP SCH (11:25)
[2018-09-12] MEDS: PANTOPRAZOLE SOD 40 MG TABEC PO SCH (11:25)
--- NOTE | 2018-09-12 11:29 | NUR ---
Per written order on chart and Bernadette, RN's conversation with Dr Monroe, right HD catheter is okay for immediate use.
--- NOTE | 2018-09-12 11:49 | NUR ---
Bina HARTLEY states he is en route.
[2018-09-12] MEDS: MIDODRINE HCL 5 MG TABLET PO SCH ×2 (11:58→15:30)
[2018-09-12] MEDS ORDERED: MIDODRINE 2.5 MG TAB PO SCH (12:00)
--- NOTE | 2018-09-12 12:10 | NUR ---
ASSESSMENT: Spiritual distress Pt is confused and anxious. Pt states, "I feel like I'm in the [place]." Pt expressed distrust in staff. Following call to pt's sister, Tatiana, pt became peaceful and cooperative. Intervention: Provided unhurried calming presence. Spoke to pt's sister on phone. Outcome: Followed up with RN. Will continue to follow as able. [facility] Care Department O: [phone] Pager: [phone] ([phone] number calling from) Addendum: 09/12/18 at 1224 by Juan Plascencia CHAP NOTE: Pt's sister stated pt has a history of "hallucinations during hospitalizations" and "our father was the same way." [facility] Care Department O: [phone] Pager: [phone] ([phone] number calling from)
--- NOTE | 2018-09-12 12:14 | NUR ---
Nutrition Screen Note- follow up RD Recommendation for Physician: -Rec to liberalize diet to regular (due to poor appetite, poor PO, low Na level) -Please check Phos with BMP -Pt is not interested in supplements. 09/08 -Consider probiotics to promote gut health (diarrhea reported by pt) Plan of Care: RD following, monitoring for tolerance and adequacy Nutrition reason for involvement: follow up Primary Diagnose(s): 1. Ntrsn-gq-mywavju systolic heart failure. 2. Acute kidney injury on chronic kidney disease. 3. Supratherapeutic international normalization ratio. 4. Elevated liver function tests. 5. Atrial fibrillation with rapid ventricular response. PMH: coronary artery disease status post myocardial infarction and 3-vessel CABG, chronic systolic and diastolic heart failure, atrial fibrillation, diabetes mellitus, hyperlipidemia, hypertension and chronic kidney disease Ht: 66in Wt: 170lb BMI: 27.4kg/m2 IBW: 154lb RD Assessment: 09/13: Pt seen for follow up. Pt s/p HD tunnel catheter placement this am, currently NPO and diet resuming for lunch. Medical provers with pt at time of attempted visits. Per chart pt with fluctuating po intake of 25-100% of meals. Pt remains in ICU 2/2 dobutamine drip requirement. LBM 09/12, continues with diarrhea- rec for probiotics previously. Chart reviewed. Labs noted, Na 135 and K WNL. Will monitor and continue to follow. (09/08) Chart reviewed. Labs and meds reviewed. 67yo M, who is admitted for SOB. Visited pt in the room. Pt reports having poor appetite for 6 weeks due to being in and out of the hospital. Pt also complains of not liking hospital foods. Sodium level is low: RD do not rec low sodium diet. Renal fx is worsening; unclear if pt will be on HD. Pt denies any nausea, vomiting or abdominal pain. LBM 09/07 per chart. Pt states I have diarrhea for weeks, possibly due to meds and frequent hospitalization. Pt denies any chewing or swallowing difficulty. Pt doesnt know if he has lost any weight, due to fluid retention. Will continue to monitor and follow. Current Diet: NPO with plan to resume ADA, Renal diet Malnutrition Evaluation (09/08/2018) The patient does not meet criteria for a specified degree of malnutrition at this time. Will re-evaluate at follow-up as appropriate. Diet Education Needs Assessment: Diet education indicated, pt not appropriate at this time. Nutrition Care Level: Low Signed: Radha Cornejo RD, LD, [facility]
--- NOTE | 2018-09-12 12:20 | NUR ---
Patient demands pain medication for 4/10 pain to buttocks; states Florence does "nothing" and refuses PO. States only the "IV medicine works on his pain." HD began at 1245. After pain medication administration, patient became delirious, hallucinating, and screaming out. 1345 Megan Gaspar, Psych PA, to bedside and witnessed the abnormal behavior. Orders eduardo'wing Plascencia contacted. HD still in process presently.
[2018-09-12] MEDS: HYDROMORPHONE 2MG/ML 2 MG/ML ML IV PRN ×2 (12:26→20:25)
[2018-09-12] MEDS ORDERED: RISPERIDONE 0.5 MG TAB PO PRN (14:45)
[2018-09-12] MEDS ORDERED: HALOPERIDOL LACTATE 5 MG/ML VIAL ONE (15:43)
[2018-09-12] MEDS: HALOPERIDOL LACTATE 5 MG/ML VIAL IM PRN (15:44)
--- NOTE | 2018-09-12 16:02 | Progress Note ---
DATE: CARDIOLOGY PROGRESS NOTE SUBJECTIVE: Patient is sleeping well. Undergoing hemodialysis. Denies any symptoms of chest pain or shortness of breath. OBJECTIVE VITAL SIGNS: Temperature is 98.1, heart rate is 115, blood pressure is 92/80, oxygen saturation 97% on room air. GENERAL: He is well-appearing. No apparent distress. Sleeping comfortably. CARDIOVASCULAR: Tachycardic. Irregular rhythm. Normal S1 and S2. LUNGS: Clear to auscultation at the apices with decreased breath sounds at bases. ABDOMEN: Soft and nontender. EXTREMITIES: Two plus edema. CARDIOVASCULAR MEDICATIONS: Reviewed. He is on dobutamine. LABORATORY DATA: Reviewed. Creatinine 5.02. Sodium 135. Telemetry monitoring revealed atrial fibrillation. IMPRESSION 1. Inehd-yv-sidailn systolic congestive heart failure. 2. Hlfhs-ub-dhdqsnv kidney disease: Now on dialysis. 3. Acute liver dysfunction secondary to congestive hepatopathy. 4. Atrial fibrillation. 5. Coronary artery disease: Status post coronary artery bypass surgery. 6. Hypertension. 7. Hyperlipidemia. RECOMMENDATIONS: Discontinue dobutamine after dialysis is performed today. Otherwise, continue all current cardiovascular medications. Continue to monitor liver function. Volume removal will continue to help with his congestive heart failure and liver dysfunction. Job#: [id number] BLAZE
--- NOTE | 2018-09-12 17:34 | NUR ---
Spoke with Dr Arrieta on phone who verified with Dr Vicente that he wishes for the dobutamine gtt to be d/c.
--- NOTE | 2018-09-12 18:27 | NUR ---
Patient remains confused, frequently attempting to exit bed independently; bed alarm active.
--- NOTE | 2018-09-12 18:46 | NUR ---
Spoke with Tatiana Silverman, MARLA and sister, and updated on patient condition. [phone]
--- NOTE | 2018-09-12 19:04 | NUR ---
Bedside report given to NAEEM Marcus.
[2018-09-12] MEDS ORDERED: RISPERIDONE 0.5 MG TAB PO SCH (21:00)
[2018-09-13] VITALS (18 sets, daily range): BP systolic 71–153; BP diastolic 55–137
--- NOTE | 2018-09-13 | NUR ---
PT TURNED AND REPOSITIONED FOR COMFORT MEASURES, GAVE PT SIPS OF WATER AND ORANGE JUICE TO DRINK, PT TOLERATED WELL. WRIST RESTRAINTS ON FOR SAFETY MEASURES. Addendum: 09/14/18 at 0518 by DHIRAJ CAMARENA RN THIS NOTE WAS DOCUMENTED ON THE WRONG NIGHT, SEE NEW NOTE
--- NOTE | 2018-09-13 | NUR ---
pt is very agitated and confused about what was going on with his care. pt wanted to get out of bed but blood pressure was 71/55 and heart rate was 119. when explained to pt why he needed to say in bed he became more aggressive towards staff by throwing thing at them and by swing fist at staff.
[2018-09-13] MEDS: METOPROLOL TARTRATE 25 MG TAB PO SCH ×4 (00:05→18:23)
[2018-09-13] MEDS: HALOPERIDOL LACTATE 5 MG/ML VIAL IM PRN ×2 (00:28→20:38)
--- NOTE | 2018-09-13 01:00 | NUR ---
pt is still agitated at this time trying to pull out tunneled catheter called dr Butt for orders on restraints. restraints started at 0100am
[2018-09-13 05:18] LABS: ANION GAP 23.8 mmol/L (8-16); CALCIUM 9.5 mg/dL (8.4-10.2); CREATININE, SERUM 4.9 mg/dL (0.72-1.25); POTASSIUM 4.8 mmol/L (3.5-5.1)
[2018-09-13] MEDS: INSULIN LISPRO 100 UNIT/1 ML 3ML VIAL SQ SCH ×4 (07:30→20:33)
--- NOTE | 2018-09-13 07:56 | Consultation ---
DATE OF CONSULTATION: September 12, 2018 PSYCHIATRIC CONSULTATION REASON FOR CONSULTATION: Evaluate the patient's psychosis. HISTORY OF PRESENT ILLNESS: The patient is a 67-year-old man admitted to the hospital for acute chronic renal failure and CHF exacerbation. Psychiatric consultation was called to evaluate the patient's psychosis. As per medical record, the patient came for problem of watery diarrhea. Was taken to the hospital and found to have worsening kidney function. PAST MEDICAL HISTORY: Includes diabetes, chronic kidney disease, diabetic neuropathy, hypercalcemia, congestive heart failure, pacemaker, coronary artery bypass surgery. Upon evaluation today, the patient is found to be lying in the ICU receiving dialysis. He is heard moaning loudly and hyperventilating. He appears to be anxious and restless. He is noncooperative at times very minimal and answering questions. He refused to answer if he knows where he is or the correct time of the year. He is not combative or repeating, just restless. He denies any depression. Denies any hallucinations. Denies anxiety, but appears to be restless and anxious. He denies any problems with sleep. Nursing staff reports that the patient has been receiving care, but he is not receiving care. Upon asking questions regarding compliance, the patient refused to answer. As per the nurse's notes, indicates that the patient has been somewhat paranoid and asking for the vice president underwriting, and asking for the high levels staff, or else he would not go back to bed. Family members reported to staff in the note that he does tend to have hallucinations in the hospital. No psychiatric past history seen in the note. PAST PSYCHIATRIC HISTORY: None as per the record. The patient unable to report. FAMILY HISTORY: Unknown. SOCIAL HISTORY: Unknown. MENTAL STATUS EXAMINATION GENERAL: The patient is an elderly male. He appears to be alert, awake and oriented to self. Minimally oriented. He appears to be anxious, restless. Mood is anxious. Psychomotor state is restless. Insight and judgment are limited. Memory: Unable to assess. Does not report suicide or homicidal ideation. Does not report any hallucinations. CURRENT MEDICATIONS 1. Seroquel 25 mg p.o. twice a day. 2. Metoprolol. 3. Insulin. 4. Lidocaine. 5. Pantoprazole. 6. Acetaminophen. 7. Polyethylene glycol. 8. Hydromorphone. 9. Heparin. 10. Albumin. 11. Mannitol. 12. Sodium chloride. 13. Dextrose. CURRENT LABS: WBC 12.51, RBC 3.81, hemoglobin 11.2, hematocrit 36, and platelets 51,000. Chemistry: Sodium is 135, potassium 4.1, chloride 94, CO2 25, BUN 103, creatinine 5.02, AST 90, ALT 484. Vital signs currently running low in the 90s systolic at times and 88 systolic. ASSESSMENT: Unspecified psychosis/delirium, multifactorial. PLAN: Discontinue Seroquel due to low blood pressure. Add Risperdal 0.5 mg p.o. q.6 h. p.r.n. Hold for sedation for systolic blood pressure less than 90. Add Haldol 2 mg IM q.6 h. p.r.n. Hold for sedation or systolic blood pressure less than 90. Ammonia level on September 11, 2018, is 103 with reference range at 31-124. Discussed with nursing staff. Monitor for agitation. Thank you for this consultation. DICTATED BY SHARON RABAGO Job#: [id number] [place]
[2018-09-13] MEDS: MIDODRINE HCL 5 MG TABLET PO SCH ×3 (08:40→16:42)
[2018-09-13] MEDS: PANTOPRAZOLE SOD 40 MG TABEC PO SCH (08:40)
[2018-09-13] MEDS ORDERED: HYDROMORPHONE 2MG/ML 2 MG/ML ML IV PRN (08:45)
[2018-09-13] MEDS: LIDOCAINE 5% PATCH TP SCH (09:00)
--- NOTE | 2018-09-13 13:03 | Progress Note ---
DATE: September 13, 2018 NEPHROLOGY PROGRESS NOTE SUBJECTIVE: He remains confused. OBJECTIVE VITAL SIGNS: Blood pressure has been labile, now 155/137. Respiratory rate 20. Heart rate 116, irregular. Temperature 97. CHEST: Clear with diminished breath sounds at the bases. CARDIAC: Normal heart tones. Rhythm sounds irregular. EXTREMITIES: 1+ edema. ASSESSMENT 1. Acute kidney injury with fluid overload. 2. Cirrhosis. 3. Metabolic acidosis. Improving chemistries with serial dialysis. Labs were reviewed. Still has some metabolic acidosis. PLAN: Hemodialysis today, 4-hour run, 2 potassium bath, F160 filter. Blood flow rate 350 mL per minute. Dialysis flow rate 500 mL per minute. Two liters fluid removal as blood pressure tolerates. Will follow along. Sincerely, Job#: [id number] EV
--- NOTE | 2018-09-13 13:17 | Progress Note ---
DATE: CARDIOLOGY PROGRESS NOTE SUBJECTIVE: Patient confused and agitated overnight. Currently lethargic and falling asleep upon questioning. OBJECTIVE VITAL SIGNS: Temperature is 97.0. Heart rate is 116. Oxygen saturation is 99% on 2 liters nasal cannula. Respirations are 20. Blood pressure is 153/137. GENERAL: He is an ill-appearing man. Lethargic. CARDIOVASCULAR: Tachycardic, irregular rhythm. LUNGS: Diminished breath sounds at bases. ABDOMEN: Soft, nontender. EXTREMITIES: 1+ edema. VASCULAR: Diminished pulses. LABORATORY DATA: INR is 1.35. Creatinine 4.9. Platelets 51. Hemoglobin 11.2. CARDIOVASCULAR MEDICATIONS: Reviewed. IMPRESSION 1. Scvak-io-xaqivwc systolic congestive heart failure. 2. Rycaj-xy-kiuipej kidney disease. 3. Acute liver dysfunction. 4. Atrial fibrillation. 5. Coronary artery disease, status post bypass surgery. 6. Hypertension. 7. Hyperlipidemia. 8. Anemia and thrombocytopenia. 9. Coagulopathy, improved. RECOMMENDATIONS: Continue hemodialysis with adequate volume removal. If he is able to tolerate, may consider reinitiation of his heart failure medications with low-dose carvedilol. Continue all other current medications. Patient has a poor prognosis overall with multiorgan failure. Will continue to monitor closely. Job#: [id number]
--- NOTE | 2018-09-13 16:04 | Progress Note ---
DATE: September 13, 2018 PSYCHIATRIC PROGRESS NOTE Patient evaluated and events noted. Patient is in the room as he is alert, awake and oriented to self. He is in restraints. He appears to be better and less anxious. He does not know the current year. Stated it is 1987. He reports having some depression. Denies any suicidal thoughts. He denies any hallucinations. He received Haldol p.r.n. IM earlier today, and also one around 3 p.m. yesterday. He received Risperdal last night. His vital signs are improving compared to yesterday. ASSESSMENT: Unspecified psychosis/delirium. PLAN: Continue with Haldol 2 mg IM q.6 h. p.r.n. with protocol. Continue with Risperdal p.r.n. p.o. with protocol. Increase Risperdal 0.25 mg p.o. at bedtime to 0.5 mg p.o. at bedtime. Monitor for agitation. Discussed with nursing staff. DICTATED BY SHARON RABAGO Job#: [id number] [place]
--- NOTE | 2018-09-13 16:38 | Discharge Summary ---
NO DICTATION, length 0 minutes 22 seconds. THEO CORNEJO D.O. Job#: [id number] EV
--- NOTE | 2018-09-13 19:00 | NUR ---
RECEIVED REPORT ON PT FROM ELLEN AT PT'S BEDSIDE. PT AAOX2, BREATHING EVEN AND UNLABORED, CONNECTED TO MONITOR, PT RECEIVED DIALYSIS EARLIER TODAY. EBER WRIST RESTRAINTS ON FOR SAFETY AND TO PREVENT PT FROM PULLING OUT DIALYSIS CATHETER
--- NOTE | 2018-09-13 20:00 | NUR ---
STAGE ONE TO SACRUM, WITNESSED BY ELLEN CHARGE NURSE UPON CHANGE OF SHIFT.
[2018-09-13] MEDS: RISPERIDONE 0.5 MG TAB PO SCH (20:38)
[2018-09-13] MEDS: ACETAMINOPHEN 325 MG TAB PO PRN (20:39)
[2018-09-14] VITALS (23 sets, daily range): BP systolic 73–152; BP diastolic 59–92
--- NOTE | 2018-09-14 | NUR ---
PT TURNED AND REPOSITIONED FOR COMFORT MEASURES OFFERED SIPS OF WATER AND JUICE DURING THE NIGHT. DENIES PAIN AT THIS TIME
--- NOTE | 2018-09-14 05:00 | NUR ---
DR BHANDARI HERE TO ASSESS PT'S STATUS. PT RESTING QUIETLY DENIES ANY PAIN OR DISCOMFORTS AT THIS TIME, INFORMED DR. BHANDARI PT'S BLOOD PRESSURE REMAINS LOW BUT HR CONT TO BE IRREGULAR AND ELEVATED. DR BHANDARI AWARE OF IRREG HEART RATE.
[2018-09-14 05:15] LABS: BASOPHILS % 0.2 % (0.0-1.0); EOSINOPHILS % 0.4 % (0.0-6.0); HEMATOCRIT 36.1 % (38.2-49.6); LYMPHOCYTES # (AUTO) 0.7 (1.0-3.2); LYMPHOCYTES % 6.3 % (18.0-39.1); MEAN CORPUSCULAR HEMOGLOBIN 29.2 pg (28-32); MEAN CORPUSCULAR HGB CONC 30.5 g/dL (31-35); MEAN CORPUSCULAR VOLUME 95.8 fL (81-99); MONOCYTES # (AUTO) 0.9 (0.2-0.8); MONOCYTES % 8.5 % (4.4-11.3); NEUTROPHILS # (AUTO) 8.9 (2.1-6.9); NEUTROPHILS % 83.2 % (38.7-80.0); PLATELET COUNT 50 x10e3/uL (140-360); RED BLOOD COUNT 3.77 x10e6/uL (4.3-5.7); RED CELL DISTRIBUTION WIDTH 19.6 % (11.7-14.4)
--- NOTE | 2018-09-14 05:20 | NUR ---
MORNING LABS DRAWN BY PANCHITO FROM LAB DEPT, PT TOLERATED WELL, PT REMAINS IN STABLE CONDITION, SLIGHTLY CONFUSED REGARDING TO TIME, CONDOM CATH INTACT.
[2018-09-14 05:43] LABS: ALBUMIN 3.3 g/dL (3.5-5.0); ALBUMIN/GLOBULIN RATIO 1.9 (0.8-2.0); ANION GAP 22.2 mmol/L (8-16); CALCIUM 8.7 mg/dL (8.4-10.2); CREATININE, SERUM 3.77 mg/dL (0.72-1.25); POTASSIUM 4.2 mmol/L (3.5-5.1)
[2018-09-14] MEDS: METOPROLOL TARTRATE 25 MG TAB PO SCH ×3 (06:21→12:00)
--- NOTE | 2018-09-14 06:35 | NUR ---
WILL REPORT OFF TO ONCOMING NURSE OF EVENTS DURING THE NIGH, PT STABLE ON ROOM AIR.
--- NOTE | 2018-09-14 07:15 | NUR ---
Patient received asleep and awakened for assessment. Patient is oriented x [address], but not to date and time. Knows who the President of [employer] is. Respirations are even and unlabored. Patient turned to his right side per his request and he also assisted and tolerated well. Condom catheter on and draining small amount of clear, yellow urine. Reddness noted to upper bilateral buttocks and site is blanachable.
[2018-09-14] MEDS: INSULIN LISPRO 100 UNIT/1 ML 3ML VIAL SQ SCH ×4 (07:30→21:00)
[2018-09-14 07:50] LABS: HYPOCHROMASIA SLIGHT; PLATELET ESTIMATE MODERATELY DECREASED; PLATELET MORPHOLOGY COMMENT FEW GIANT; POIKILOCYTOSIS MODERATE; RBC MORPHOLOGY COMMENT ABNORMAL
[2018-09-14 07:51] LABS: ANISOCYTOSIS MODE; BURR CELLS SLIGHT; ELLIPTOCYTE, RBC SLIGHT
[2018-09-14] MEDS: MIDODRINE HCL 5 MG TABLET PO SCH ×3 (08:00→16:49)
--- NOTE | 2018-09-14 08:41 | NUR ---
DIALYSIS UPDATES FAXED; CONFIRMATION REC'D
[2018-09-14] MEDS: PANTOPRAZOLE SOD 40 MG TABEC PO SCH (09:00)
--- NOTE | 2018-09-14 09:18 | Diagnostic Imaging Report ---
PROCEDURE: 1. PLACEMENT OF RIGHT INTERNAL JUGULAR TUNNELED HEMODIALYSIS CATHETER WITH FLUOROSCOPIC GUIDANCE 2. REMOVAL OF RIGHT IJ NON-TUNNELED HEMODIALYSIS CATHETER INDICATION: Need for sole seamer dialysis access. OPERATORS: Marques Monroe MD RADIATION EXPOSURE: Fluoroscopy Time: 0.9 minutes Dose area product (DAP): 86.9 cGycm2 CONSENT: The patient was informed of the nature of the proposed procedure. The purposes, alternatives, risks, and benefits were explained and discussed. All questions were answered and written consent was obtained. ANESTHESIA: Conscious sedation administered by interventional nursing. Continuous hemodynamic monitoring was performed. MEDICATIONS: 15 cc of 1% subcutaneous lidocaine IV Fentanyl and Versed per nursing administration records TECHNIQUE: The patient was brought to the angiography suite, and the right neck and upper chest were prepped and draped in standard sterile fashion. All elements of maximal sterile barrier technique were followed including cap and mask, sterile gown, sterile gloves, large sterile sheet, hand hygiene and 2% chlorhexidine for cutaneous antisepsis. Pre-procedure time-out confirmed the patient identity and the procedure to be performed. Using standard sterile technique, 1 % lidocaine was administered subcutaneously for local anesthesia. Ultrasound demonstrated that the right internal jugular was patent and compressible. Under continuous sonographic guidance, the right internal jugular vein was accessed using a 21 G micropuncture needle. The access needle was exchanged for a 5 Fr micropuncture sheath. An 0.035'' Amplatz wire was advanced into the IVC to secure access. The venotomy site was dilated. Appropriate measurements were made using the 8 Fr dilator. Attention was then turned towards the subcutaneous tunnel. After administration of 1% lidocaine subcutaneously for local anesthesia, a 16 Fr x 19 cm Hemosplit hemodialysis catheter was tunneled in an antegrade direction from skin exit site to venotomy site. The dilator was exchanged for the peel-away sheath under direct fluoroscopic visualization. The catheter was then advanced through the peel-away sheath into the superior vena cava. After confirming appropriate position with fluoroscopy the catheter tip in the right atrium, the peel-away sheath was removed, and both lumens aspirated, check flushed, and terminally flushed with 2 cc each of heparin solution (1000 units/cc of heparin). The right IJ non-tunneled hemodialysis catheter was removed and hemostasis achieved. The tunneled catheter was secured using 3-0 Ethilon pursestring suture at the catheter exit site and also 3-0 Ethilon sutures at the catheter hub. The venotomy site was closed with a single subcutaneous Vicryl suture, Dermabond, and steri-strips. Sterile dressings were applied. The patient tolerated the procedure well without immediate complication and was transported back to the floor in stable condition. FINDINGS: 1. Patent and compressible right IJV accessed with continuous ultrasound guidance. 2. Placement of 16 Fr x 19 cm tunneled right IJV hemodialysis catheter. 3. Post-procedure intraprocedural chest radiograph showed the catheter tip in the proximal right atrium, no kinks along course of catheter, and no pneumothorax. Catheter is ready for use. 4. Right IJ non-tunneled hemodialysis catheter removed with hemostasis achieved. IMPRESSION: Placement of right IJ tunneled hemodialysis catheter. Catheter is ready for immediate use. Removal of right IJ non-tunneled hemodialysis catheter with hemostasis achieved. Signed by: Dr. Marques Monroe MD on 09/14/2018 9:15 AM
[2018-09-14] MEDS: LIDOCAINE 5% PATCH TP SCH (09:29)
--- NOTE | 2018-09-14 09:44 | Progress Note ---
DATE: September 14, 2018 Remains confused. Breathing is much better. Swelling is improved. Over the last 4 days has been negative almost 5.5 L. PHYSICAL EXAMINATION GENERAL: Laying in bed in no distress. Confused. VITALS: Temperature 96.4, pulse 106, blood pressure 187/64. HEART: Rate is irregular. CHEST: Clear with diminished breath sounds at bases. EXTREMITIES: Trace edema. There are compression stockings. NEURO: Confusion. Serum CO2 22, potassium is 4.2, creatinine 3.77, BUN 49. Urine output remains oliguric with . ASSESSMENT 1. Acute kidney injury: Originally felt to be a combination of /cardiorenal syndrome. 2. Fluid overload. 3. Delirium. 4. Oliguria. PLAN: At this point, reasonably well compensated. Plan on repeat dialysis tomorrow as he does not appear to be recovering renal function given the output. Will follow along. Remains very ill, especially on a chronic basis. Job#: [id number] BLAZE
--- NOTE | 2018-09-14 14:19 | Progress Note ---
DATE: CARDIOLOGY PROGRESS NOTE SUBJECTIVE: Patient's mental status is overall improved. Denies any chest pain. Mild shortness of breath. No other events. OBJECTIVE: VITAL SIGNS: Temperature is 97.4. Heart rate is 107. Blood pressure is 85/71. Oxygen saturation 97% on room air. GENERAL: He is a chronically ill-appearing male lying comfortably in bed. HEAD: Normocephalic, atraumatic. NECK: There is jugular venous distention present. CARDIOVASCULAR: He is irregular and tachycardiac. LUNGS: Diminished breath sounds at bases. ABDOMEN: Soft, nontender. EXTREMITIES: There is edema present. NEUROLOGICAL: No focal deficits noted. CARDIOVASCULAR MEDICATIONS: Reviewed. LABORATORY DATA: Hemoglobin 11. Platelets 50. Creatinine 3.7. AST 66, ALT is 295. TELEMETRY MONITORING: Revealed atrial fibrillation with occasional ventricular-paced rhythm. IMPRESSION: 1. Aavyr-ll-zizfqec systolic congestive heart failure. 2. Qbmml-po-wslpjky kidney disease, currently on hemodialysis. 3. Acute liver dysfunction, improved. 4. Atrial fibrillation. 5. Coronary disease status post coronary artery bypass graft surgery. 6. Hypertension, currently with hypotension. 7. Hyperlipidemia. 8. Anemia and thrombocytopenia. PLAN: Continue volume removal with hemodialysis. Hold the metoprolol at this point in time given decompensated heart failure status and hypotension. Otherwise, continue to closely monitor his hemodynamics and his heart rhythm on telemetry. His liver function has improved, likely due to the fact we are getting adequate volume removal with hemodialysis. Continue to monitor all laboratory values closely. Job#: [id number] EV
--- NOTE | 2018-09-14 16:03 | NUR ---
Patient requested to sit up in chair after sitting up in bed and trying to get out of bed and bed alarm on. Patient assisted to chair and tolerated well.
--- NOTE | 2018-09-14 16:03 | Progress Note ---
DATE: September 14, 2018 PSYCHIATRIC PROGRESS NOTE Patient evaluated and events noted. Patient is in the ICU. He is calm and cooperative. He is alert, awake and oriented to self. He does not know where he is. He is confused but not combative or agitated at the time of my assessment. He did get Haldol p.r.n. IM last night. He is getting Risperdal. Nursing staff reported the patient has been intermittently hallucinating. However, the patient denies any hallucinations at this time. He denies any depression. No side effects seen or reported. The patient missed his dialysis today as per nurse. Patient is jaundiced-appearing. ASSESSMENT: Unspecified psychosis/delirium, improved. PLAN 1. Continue with Haldol 2 mg IM q.6 h. p.r.n. with protocol. 2. Continue Risperdal p.r.n. p.o. with protocol. 3. Continue Risperdal 0.5 mg p.o. nightly. 4. Monitor for agitation and psychosis. 5. Discussed with nursing staff. DICTATED BY: SHARON Whitfield Job#: [id number]
--- NOTE | 2018-09-14 16:10 | NUR ---
[facility]
--- NOTE | 2018-09-14 17:30 | NUR ---
Patient still sitting up in chair and now requesting to go to bedside commode and assisted there and tolerated well. He had small amount of brown, loose stool.
--- NOTE | 2018-09-14 18:06 | NUR ---
Patient returned to bed with assistance and tolerated well. Bed Alarm on. V/S are stable. Denies any pain or discomfort. Respirations are even and unlabored and O2 sats are 100% on room air.
[2018-09-14] MEDS: RISPERIDONE 0.5 MG TAB PO SCH (21:07)
[2018-09-15] VITALS (24 sets, daily range): BP systolic 73–156; BP diastolic 50–121
[2018-09-15 04:51] LABS: BASOPHILS % 0.2 % (0.0-1.0); EOSINOPHILS # (AUTO) 0.1 (0.0-0.4); EOSINOPHILS % 0.6 % (0.0-6.0); HEMATOCRIT 39.6 % (38.2-49.6); HEMOGLOBIN 12.4 g/dL (14.0-18.0); LYMPHOCYTES # (AUTO) 1.1 (1.0-3.2); LYMPHOCYTES % 8.9 % (18.0-39.1); MEAN CORPUSCULAR HEMOGLOBIN 29.5 pg (28-32); MEAN CORPUSCULAR HGB CONC 31.3 g/dL (31-35); MEAN CORPUSCULAR VOLUME 94.3 fL (81-99); MONOCYTES # (AUTO) 1.2 (0.2-0.8); MONOCYTES % 9.6 % (4.4-11.3); NEUTROPHILS # (AUTO) 10.1 (2.1-6.9); NEUTROPHILS % 79.4 % (38.7-80.0); PLATELET COUNT 58 x10e3/uL (140-360); RED CELL DISTRIBUTION WIDTH 19.6 % (11.7-14.4)
[2018-09-15 05:22] LABS: ALBUMIN 3.5 g/dL (3.5-5.0); ALBUMIN/GLOBULIN RATIO 1.6 (0.8-2.0); ANION GAP 21.6 mmol/L (8-16); CALCIUM 9.8 mg/dL (8.4-10.2); CREATININE, SERUM 5.5 mg/dL (0.72-1.25); POTASSIUM 4.6 mmol/L (3.5-5.1)
[2018-09-15 07:16] LABS: LYMPHOCYTES % (MANUAL) 7 % (19-48); MONOCYTES % (MANUAL) 10 % (3.4-9.0); MYELOCYTES % (MANUAL) 1 % (0-0); NEUTROPHILS % (MANUAL) 82 % (40-74); PLATELET ESTIMATE MODERATELY DECREASED; RBC MORPHOLOGY COMMENT ABNORMAL
[2018-09-15 07:17] LABS: ANISOCYTOSIS MODERATE; BURR CELLS MODERATE; ELLIPTOCYTE, RBC SLIGHT
[2018-09-15 07:18] LABS: HOWELL-JOLLY BODIES FEW; PLATELET MORPHOLOGY COMMENT NORMAL
[2018-09-15] MEDS: INSULIN LISPRO 100 UNIT/1 ML 3ML VIAL SQ SCH ×4 (07:30→20:52)
--- NOTE | 2018-09-15 07:30 | NUR ---
Patient received awake, and alert and Ox [address] Respirations are even and unlabored. Denies any pain at this time. Says he wants to get cleaned up and a shave.
[2018-09-15] MEDS: MIDODRINE HCL 5 MG TABLET PO SCH ×3 (08:00→16:00)
--- NOTE | 2018-09-15 08:30 | NUR ---
Patient given bedbath and then sat in chair for 45 minutes and tolerated well. Patient states that he is not very hungry and drank only his cranberry juice and refused his meal.
--- NOTE | 2018-09-15 08:45 | NUR ---
Dr. Christopher here to see patient
[2018-09-15] MEDS: PANTOPRAZOLE SOD 40 MG TABEC PO SCH (09:19)
[2018-09-15] MEDS: LIDOCAINE 5% PATCH TP SCH (09:19)
--- NOTE | 2018-09-15 09:32 | Progress Note ---
DATE: September 15, 2018 Remains confused. Insistent that someone is drilling his shoulder on a daily basis. He knows the name. He does not know the month and the year. He can name several of his specialist physicians. PHYSICAL EXAMINATION VITALS: Temperature 98.7, pulse 118 and irregular, blood pressure 115/100. CHEST: Clear. EXTREMITIES: 1+ pedal edema. Left arm is swollen. CARDIAC: Normal heart tones. Rhythm sounds irregular. NEURO: Some confusion. Urine output was only 10 mL. Chemistries: White count 12.7. Platelets 58,000. Hemoglobin 12.4. Serum CO2 is 21, sodium 131, creatinine 5.5, BUN 71. ASSESSMENT 1. Acute kidney injury: So far, no recovery. Oliguria and fluid overload. SORAYA is probably multifactorial from liver disease-induced renal vasoconstriction, cardiorenal syndrome, acute tubular necrosis possibly. 2. Acidosis and hyponatremia secondary to fluid overload. PLAN: Hemodialysis today, 4-hour run, F160 filter, 2 to 3 liters fluid removal, 2 potassium bath. Overall, still remains somewhat ill with delirium, however, gradually improving. Delirium is clearing. We will follow along. Job#: [id number]
--- NOTE | 2018-09-15 11:45 | NUR ---
Dialysis nurse here at bedside to perform dialysis and B/P is low at 83/65 and 2 Albumins given
--- NOTE | 2018-09-15 13:00 | NUR ---
B/P has remained low-now it is 84/71 and dialysis stopped per Dr. Christohper's order after dialysis nurse spoke to him. Patient is also frustated and states that he cannot lie flat and is refusing dialysis. I called his sister- Tatiana Silverman- to ask her if she has Power of Jigmaker over Health Care matters and she said that she did not. I explained to her that her brother is requesting to stop the dialysis and that patient's blood pressure is too low to continue and that Dr. Christopher has also stopped it for now. I also asked her if she has considered Hospice for her brother. She said "No" and that she will be coming to see her brother today or tomorrow and will be speaking with the doctors.
--- NOTE | 2018-09-15 15:45 | NUR ---
Wound care here to see patient and do dressing changes to left foot. Alevyn also applied to sacrum and tolerated well.
--- NOTE | 2018-09-15 16:30 | NUR ---
Sister (Tatiana) and her at bedside visiting with patient. Rosales (friend of patient) also at bedside and they are all having a pleasant visit.
--- NOTE | 2018-09-15 16:46 | NUR ---
WOUND CARE CONSULTATION: THIS IS A 67 YEAR OLD FEMALE PATIENT ADMITTED TO [facility] FOR ACUTE ON CHRONIC RENAL FAILURE AND CHF EXACERBATION. HEAD TO TOE SKIN ASSESSMENT PERFORMED. PATIENT HAS A LEFT DORSAL FOOT RESOLVING BLISTER MEASURING 6X6.5X0.1CM, 100% PINK GRANULATION NOTED TO WOUND BED. PATIENT HAS AN AREA OF BLANCHABLE REDNESS TO THE SACRUM NOTED UPON ASSESSMENT. LABS: WBC12.75 HGB12.4 HCT39.6 ALB3.5 [id number] BLOOD CULTURE = NEGATIVE RECOMMENDATION: -CONTINUE ALTERNATING PRESSURE RELIEF MATTRESS. -APPLY BILATERAL HEEL PROTECTORS WITH PILLOW SUSPENSION. -TURN EVERY 2 HOURS AND PRN. -NURSING TO APPLY BACTROBAN TO LEFT DORSAL FOOT RESOLVING BLISTER, COVER WITH ADAPTIC, 4X4 GAUZE, KERLIX; CHANGE DRESSING DAILY AND PRN. -NURSING TO APPLY VENELEX THEN ALLEVYN FOAM TO SACRAL AREA OF BLANCHABLE REDNESS; CHANGE DAILY AND PRN. THANK YOU FOR THIS WOUND CARE CONSULT. Addendum: 09/15/18 at 1655 by Rosalva Cook RN Amended: Links added.
[2018-09-15] MEDS ORDERED: DIGOXIN INJ 0.25 MG/ML 2 ML AMP ONE (16:47)
[2018-09-15] MEDS ORDERED: DIGOXIN INJ 0.25 MG/ML 2 ML AMP IV NR (17:15)
--- NOTE | 2018-09-15 18:09 | Progress Note ---
DATE: CARDIOLOGY PROGRESS NOTE SUBJECTIVE: Patient undergoing hemodialysis for clearance only. Patient is hypotensive, able to tolerate dialysis. Denies any chest pain or shortness of breath. OBJECTIVE: VITAL SIGNS: Temperature is 97.4, heart rate is 120s, respiratory rate is 16, oxygen saturation is 100% on room air, blood pressure is 103/73. GENERAL: He is a chronically ill-appearing man, no apparent distress. CARDIOVASCULAR: He is irregularly irregular, tachycardiac. LUNGS: Diminished breath sounds at bilateral bases. ABDOMEN: Soft, nontender. EXTREMITIES: Edema. CARDIOVASCULAR MEDICATIONS: Reviewed. LABORATORY DATA: White blood cell count 12.75, hemoglobin is 12.4, platelets are 58. AST is 49, ALT is 253. Creatinine is 5.5. TELEMETRY MONITORING: Revealed atrial fibrillation with occasional ventricular complexes. IMPRESSION: 1. Etgje-dr-ehmtbdn systolic congestive heart failure. 2. Miyrr-kx-qurellb kidney disease on hemodialysis. 3. Acute liver dysfunction. 4. Atrial fibrillation with rapid ventricular response. 5. Coronary artery disease status post coronary artery bypass graft surgery. 6. Hypotension. 7. Hyperlipidemia. 8. Anemia and thrombocytopenia. Continue volume removal with hemodialysis. May consider starting midodrine for blood pressure support so that we may pull volume on his dialysis sessions. Will give one dose of digoxin intravenously for rate control. Patient cannot tolerate beta blockers or other optimal medical therapies for his heart failure at this point in time. Thankfully, his liver indices are improving and platelets appear to be stable. Job#: [id number] EV
[2018-09-15] MEDS: RISPERIDONE 0.5 MG TAB PO SCH (20:52)
[2018-09-16] VITALS (11 sets, daily range): BP systolic 79–152; BP diastolic 64–139
[2018-09-16 04:48] LABS: BASOPHILS % 0.2 % (0.0-1.0); EOSINOPHILS # (AUTO) 0.1 (0.0-0.4); EOSINOPHILS % 0.4 % (0.0-6.0); HEMATOCRIT 36.9 % (38.2-49.6); HEMOGLOBIN 11.5 g/dL (14.0-18.0); LYMPHOCYTES % 7.8 % (18.0-39.1); MEAN CORPUSCULAR HEMOGLOBIN 29.3 pg (28-32); MEAN CORPUSCULAR HGB CONC 31.2 g/dL (31-35); MEAN CORPUSCULAR VOLUME 94.1 fL (81-99); MONOCYTES # (AUTO) 1.1 (0.2-0.8); MONOCYTES % 8.2 % (4.4-11.3); NEUTROPHILS # (AUTO) 10.7 (2.1-6.9); NEUTROPHILS % 82.2 % (38.7-80.0); PLATELET COUNT 59 x10e3/uL (140-360); RED BLOOD COUNT 3.92 x10e6/uL (4.3-5.7); RED CELL DISTRIBUTION WIDTH 19.6 % (11.7-14.4)
[2018-09-16 05:11] LABS: ALBUMIN 3.8 g/dL (3.5-5.0); ALBUMIN/GLOBULIN RATIO 1.9 (0.8-2.0); ANION GAP 24.6 mmol/L (8-16); CALCIUM 9.9 mg/dL (8.4-10.2); CREATININE, SERUM 5.72 mg/dL (0.72-1.25); POTASSIUM 4.6 mmol/L (3.5-5.1)
--- NOTE | 2018-09-16 07:10 | NUR ---
ASSESSMENT: Spiritual Concern Pt hopeful concerning illness. Pt's sister and uxntpfu-lj-ozm at bedside. Pt states he is doing better and is no longer "having hallucinations." Pt states that "Wednesday was a bad day" and he recently thought there were "shoes under his bed" and that he thought he was "riding on a train car." He states these events seemed "very real" to him. Pt expresses trust in his sister. In conversation outside of pt's room, pt's sister stated she is hopeful for recovery so he can "return home and enjoy the things he loves doing" but "if it ever came down to it he would not want to be on life-support" based on circumstances prior to their mother's . Pt's sister states they will be returning home ([place]) later today. Intervention: Provided empathic listening and pastoral presence. Facilitated conversation about things that have meaning for pt with NOK. Facilitated storytelling. Outcome: Pt and family expressed appreciation for visit and support. Will continue to follow as able. JYOTI ANDRADE Turbine Technician Spiritual Care Department O: [phone] Pager: [phone] ([phone] calling from)
[2018-09-16] MEDS: INSULIN LISPRO 100 UNIT/1 ML 3ML VIAL SQ SCH ×4 (07:30→21:00)
[2018-09-16] MEDS ORDERED: MIDODRINE 2.5 MG TAB PO SCH (08:00)
[2018-09-16] MEDS: PANTOPRAZOLE SOD 40 MG TABEC PO SCH (08:02)
[2018-09-16] MEDS: LIDOCAINE 5% PATCH TP SCH (08:02)
[2018-09-16] MEDS: MIDODRINE HCL 5 MG TABLET PO SCH ×3 (08:02→16:00)
--- NOTE | 2018-09-16 09:32 | Progress Note ---
DATE: September 15, [address] Whelan came and saw the patient. The patient is alert and awake. He is doing fair. He is answering questions. He complains of anxiety. He is frustrated due to his health issues. He is not combative or agitated. He reports some insomnia, but he is hypotensive. He denies any hallucinations or suicidal ideation. He is receiving his medication. No serious side effects seen. ASSESSMENT: Unspecified psychosis/delirium, improved. PLAN 1. Continue with Risperdal 0.5 mg p.o. nightly. 2. Continue with Haldol 2 mg IM q.6 h. p.r.n. 3. Continue with Risperdal p.r.n. p.o. 4. Monitor for agitation. DICTATED BY: SHARON Whitfield Job#: [id number]
[2018-09-16] MEDS: BALSAM PERU/CASTOR OIL 60 GM OINT...G. TP SCH (10:00)
[2018-09-16] MEDS: MUPIROCIN 2% OINT 22 GM TUBE TOP SCH (10:00)
[2018-09-16 10:08] LABS: ANISOCYTOSIS MODERATE; BURR CELLS MODERATE; ELLIPTOCYTE, RBC SLIGHT; HYPOCHROMASIA SLIGHT; PLATELET ESTIMATE MARKEDLY DECREASED; PLATELET MORPHOLOGY COMMENT FEW LARGE; RBC MORPHOLOGY COMMENT ABNORMAL
--- NOTE | 2018-09-16 14:53 | Progress Note ---
DATE: CARDIOLOGY PROGRESS NOTE SUBJECTIVE: Patient overall feels better. He was transferred out of the intensive care unit. No chest pain or shortness of breath. OBJECTIVE VITAL SIGNS: Temperature is 98.6, heart rate is 108, respirations are 21, blood pressure is 103/76, oxygen saturation 99% on room air. GENERAL: He is a chronically ill-appearing middle-aged male in no apparent stress. CARDIOVASCULAR: He is tachycardic. Irregular rhythm. LUNGS: Diminished breath sounds at bilateral bases. ABDOMEN: Soft and nondistended. EXTREMITIES: There is edema present. CARDIOVASCULAR MEDICATIONS: Reviewed. LABORATORY DATA: Hemoglobin 11.5 and platelets 59,000. ALT 201, AST 41, creatinine 5.7, potassium 4.6. Telemetry monitoring revealed atrial fibrillation with rapid ventricular response. IMPRESSION 1. Aafkd-xi-sbahnqu systolic and heart failure. 2. Nykyg-ja-kcafsmd kidney disease, now on hemodialysis. 3. Acute liver dysfunction, improved. 4. Atrial fibrillation with rapid ventricular response. 5. Coronary artery disease: Status post coronary bypass graft surgery. 6. Hypotension. 7. Hyperlipidemia. 8. Anemia and thrombocytopenia. RECOMMENDATIONS: Patient will need to continued volume removal with hemodialysis. All optimal medical therapy for his heart failure is being held given hypotension. May use midodrine for blood pressure control to allow for adequate dialysis sessions. If the patient becomes severely tachycardic with heart rates above 110, can use intermittent doses of digoxin. However, will use this carefully given his acute kidney injury. His CBC and liver function tests continue to improve, and there is no overt signs of bleeding. Job#: [id number] [place]
--- NOTE | 2018-09-16 19:00 | NUR ---
UPON RECEIVING REPORT ON PT DIALYSIS NURSE KASIA HARTLEY GETTING READY TO START HEMODIALYSIS ON PT PT MORE ORIENTED TO SITUATIONS AND PLACE THAN 2 DAYS AGO, CONTINUES TO HAVE TUNNELED DIALYSIS CATHETER TRIPLE LUMEN CATHETER OUT. NO LONGER IN PLACE.
[2018-09-16] MEDS: RISPERIDONE 0.5 MG TAB PO SCH (21:00)
--- NOTE | 2018-09-16 21:00 | NUR ---
GOOD FAMILY FRIEND HERE TO VISIT WITH PT, ASKED PT IF IT WAS HIS BROTHER, PT STATED HE HAS LIVED [place]CROSS THE [address] FROM ME FOR EVER IT SEEMED LIKE.
[2018-09-16] MEDS ORDERED: HEPARIN SOD (PORCINE) 1000 UNIT/ML SDV IV PRN (22:00)
[2018-09-17] VITALS: BP 94/52
[2018-09-17 04:30] VITALS: BP 94/66
[2018-09-17 05:56] LABS: CALCIUM 9.4 mg/dL (8.4-10.2); CREATININE, SERUM 4.07 mg/dL (0.72-1.25)
[2018-09-17] MEDS: INSULIN LISPRO 100 UNIT/1 ML 3ML VIAL SQ SCH (07:30)
[2018-09-17 08:06] VITALS: BP 129/68
[2018-09-17 08:13] VITALS: BP 99/72
[2018-09-17 08:14] VITALS: BP 99/72
[2018-09-17] MEDS: PANTOPRAZOLE SOD 40 MG TABEC PO SCH (08:17)
[2018-09-17] MEDS: MIDODRINE HCL 5 MG TABLET PO SCH ×4 (08:17→15:57)
[2018-09-17] MEDS: LIDOCAINE 5% PATCH TP SCH (08:17)
--- NOTE | 2018-09-17 08:17 | Progress Note ---
DATE: SUBJECTIVE: This is a patient that has been transferred out of the ICU. Patient was admitted for gtliw-az-avjijjo heart failure, wdvmk-np-nuaqpfl kidney disease, now deemed as end-stage, is on hemodialysis. Patient also had hepatic encephalopathy, atrial fibrillation with rapid ventricular response. Currently, patient is out of the ICU, doing better, has times and lapses of cognition, currently alert and oriented x3, slips in and out of normal cognition. MEDICATIONS: Include; 1. Pantoprazole 40 mg daily. 2. Haldol 2 mg p.r.n. for agitation. 3. Polyethylene glycol once daily. 4. Risperdal 0.5 mg at night time. 5. Insulin Lispro sliding scale. 6. Heparin protocol for DVT. 7. Hydromorphone 0.5 as needed. Patient also is getting IV fluids. PHYSICAL EXAMINATION VITAL SIGNS: Temperature is 98.1, pulse of 111, respirations of 19, blood pressure is 94/66, pulse oximetry of 99%; and patient is on room air at this time. GENERAL: Patient is alert and oriented x2. HEENT: Normocephalic, atraumatic. Has icterus present. Jaundiced. CVS: S1, S2 is tachycardic, irregular rhythm. LUNGS: Decreased air entry at lung bases. Positive for bilateral crackles. ABDOMEN: Soft and nontender. EXTREMITIES: Has a compression hose. : Castillo 2-way catheter. LABORATORY DATA: Patient's laboratory values showed yesterday's sodium of 131, BUN of 21.6, creatinine of 5.50. Glucoses have been trending to 120s-140s. Total bilirubin was 7.6, AST 41, and ALT of 401. Phosphorus is 5.9. ASSESSMENT 1. Acute kidney injury. 2. End-stage renal disease. 3. Acidosis. 4. Hyponatremia secondary to fluid overload. Patient had hemodialysis yesterday, 4-hour run; 2-3 liters of fluid removed. 5. For jdvin-fl-lorsral heart failure, he will continue with dialysis and removal of fluid. Hold off on diuretics secondary to hypotension. 6. Acute hepatitis. We will continue monitoring his liver functions. Bilirubin has risen up a little bit today. 7. Atrial fibrillation with rapid ventricular response. We will continue monitoring his heart rate. Intermittent doses of digoxin will be ordered. 8. Hyperlipidemia. Hold off on any statins secondary to liver enzymes being high. 9. Anemia and thrombocytopenia, probably secondary to acute liver disease. White count is elevated at 13,000, hemoglobin is 11.5, and hematocrit of 36.9. We will continue monitoring the patient along with consultants. Overall prognosis is poor. Patient will need SNF or an LTAC on a later date. Job#: [id number] OXANA
[2018-09-17 08:55] VITALS: BP 99/72
[2018-09-17] MEDS ORDERED: FUROSEMIDE INJ 10 MG/ML 4 ML VIAL IV ONE (09:30)
[2018-09-17] MEDS: BALSAM PERU/CASTOR OIL 60 GM OINT...G. TP SCH (09:54)
[2018-09-17] MEDS: MUPIROCIN 2% OINT 22 GM TUBE TOP SCH (09:54)
[2018-09-17] MEDS ORDERED: DIGOXIN INJ 0.25 MG/ML 2 ML AMP IV ONE ×2 (12:30→16:30)
--- NOTE | 2018-09-17 13:00 | Progress Note ---
DATE: NOTE: CARDIOLOGY PROGRESS NOTE SUBJECTIVE: Patient reports shortness of breath, palpitations, fatigue this morning. Denies any chest pain. OBJECTIVE VITAL SIGNS: Temperature 99.1, pulse 112, respiratory rate 20, blood pressure 99/72, oxygen saturation 97% on room air. GENERAL: Chronically ill-appearing male, irritated this morning, fatigued, tired of being in the hospital per his reporting. NECK: Mild JVD noted. CARDIOVASCULAR: Tachycardic. Irregular rate and rhythm. Systolic murmur present. LUNGS: Diminished breath sounds bilateral bases. ABDOMEN: Soft. LOWER EXTREMITIES: Edema with venous ulcer on the left lower extremity. Compression stockings in place. CARDIOVASCULAR MEDICATIONS: None at this moment. LABS: Sodium 140, potassium 4.0, BUN 46, creatinine 4.07, GFR 15, calcium 9.4. Magnesium 2.5 yesterday. TELEMETRY: Atrial fibrillation with RVR, V-paced rhythm with bundle branch block. ASSESSMENT 1. Prtxu-br-uzdftok systolic heart failure. 2. Lasdw-bq-uttbris kidney disease, now on dialysis. 3. Acute liver dysfunction that is improving. 4. Atrial fibrillation with rapid ventricular response. 5. Coronary artery disease, status post coronary artery bypass graft. 6. Hypertension. 7. Hyperlipidemia. 8. Anemia and thrombocytopenia. PLAN: Patient continues to be fluid overloaded. Volume management removal per dialysis, nephrology managing. His heart failure medications are being held at this time given his hypotension. May use midodrine for blood pressure control, especially during dialysis. He would receive intermittent dose of digoxin today to help with tachycardia. We will continue to monitor patient very closely. Patient remains quite ill. Guarded prognosis. Job#: [id number] KAREN
--- NOTE | 2018-09-17 17:30 | NUR ---
patient transferred to [facility], left in stretcher via EMS, discharge summary sent with patient.
--- NOTE | 2018-09-21 12:28 | Progress Note ---
DATE: September 16, 2018 PSYCHIATRIC PROGRESS NOTE Patient evaluated and events noted. The patient is in the room. He is alert, awake and oriented to situation. He is conversational. He is not confused. He is calm and cooperative. He denies depression and anxiety. He denies any hallucinations. He denies any suicidal ideation. He has not received any p.r.n. medication. He is taking his medication. No serious side effects seen or reported. As per nursing staff, the patient is doing better. ASSESSMENT: Unspecified psychosis. PLAN 1. Continue with Risperdal scheduled nightly. 2. Continue with p.r.n. medication 3. Supportive therapy. DICTATED BY: SHARON Whiftield Job#: [id number]
== END 2018-09-17 16:57 | disposition short-term general hospital (02) | DRG 871 ==
LOC: ER 06:19 → ERHOLD 09:13 → MED/SURG2 23:53 → ICU 09-09 16:37 → IMCU 09-16 14:19
PROVIDERS: ADMIT Internal Medicine; ATTEND Internal Medicine
PROC: 02HV33Z Insertion of Infusion Device into Superior Vena Cava, Percutaneous Approach (ICD-10-PCS; 2018-09-09)
PROC: 30233K1 Transfusion of Nonautologous Frozen Plasma into Peripheral Vein, Percutaneous Approach (ICD-10-PCS; 2018-09-09)
PROC: 5A1D70Z Performance of Urinary Filtration, Intermittent, Less than 6 Hours Per Day (ICD-10-PCS; 2018-09-09)
PROC: 0JH63XZ Insertion of Tunneled Vascular Access Device into Chest Subcutaneous Tissue and Fascia, Percutaneous Approach (ICD-10-PCS; principal; 2018-09-12)
PROC: 02H633Z Insertion of Infusion Device into Right Atrium, Percutaneous Approach (ICD-10-PCS; 2018-09-12)
PROC: 02PYX3Z Removal of Infusion Device from Great Vessel, External Approach (ICD-10-PCS; 2018-09-12)
DX: A41.9 Sepsis, unspecified organism (principal); I50.23 Acute on chronic systolic (congestive) heart failure; N18.6 End stage renal disease; N17.0 Acute kidney failure with tubular necrosis; G93.41 Metabolic encephalopathy; K76.7 Hepatorenal syndrome; I13.2 Hypertensive heart and chronic kidney disease with heart failure and with stage 5 chronic kidney disease, or end stage renal disease; E87.2 Acidosis; I47.2 Ventricular tachycardia; F05 Delirium due to known physiological condition; E87.1 Hypo-osmolality and hyponatremia; K52.9 Noninfective gastroenteritis and colitis, unspecified; E11.22 Type 2 diabetes mellitus with diabetic chronic kidney disease; Z79.84 Long term (current) use of oral hypoglycemic drugs; I25.10 Atherosclerotic heart disease of native coronary artery without angina pectoris; I25.2 Old myocardial infarction; F17.200 Nicotine dependence, unspecified, uncomplicated; Z95.1 Presence of aortocoronary bypass graft; K76.1 Chronic passive congestion of liver; K21.9 Gastro-esophageal reflux disease without esophagitis; N40.0 Benign prostatic hyperplasia without lower urinary tract symptoms; M10.9 Gout, unspecified; Z85.51 Personal history of malignant neoplasm of bladder; Z78.1 Physical restraint status; I95.9 Hypotension, unspecified; I48.2 Chronic atrial fibrillation; Z79.01 Long term (current) use of anticoagulants; K74.60 Unspecified cirrhosis of liver; D64.9 Anemia, unspecified; D69.6 Thrombocytopenia, unspecified; F29 Unspecified psychosis not due to a substance or known physiological condition; E11.21 Type 2 diabetes mellitus with diabetic nephropathy; E83.52 Hypercalcemia; Z88.0 Allergy status to penicillin
CPT/HCPCS: 36415; 36556; 36558; 71045; 71046; 74176; 74470; 76705; 76937; 80048; 80053; 81001; 82140; 82550; 82553; 82570; 82575; 82948; 83605; 83735; 83880; 83970; 84100; 84156; 84484; 85025; 85610; 85730; 86039; 86255; 86850; 86900; 87040; 87493; 90962; 93005; 96361; 96372; 97139; 99284; C1769; J1160; J1250; J1630; J1644; J1940; J2001; J2150; J2250; J3430; J7030; J7040; J7050; J7070; P9017